=== PATIENT | male | born 1940 | race Caucasian/White ===

== ENCOUNTER → 2018-09-24 17:28 | Outpatient (CLI) | payer MEDICARE, OTHER, SELFPAY ==
[2018-09-24 17:42] LABS: Adenovirus F 40/41, stool Not Detected (NotDetected); Astrovirus Not Detected (NotDetected); Campylobacter Not Detected (NotDetected); Clostridium Difficile A/B, PCR Not Detected (NotDetected); Cryptosporidium Not Detected (NotDetected); Cyclospora Cayetanesis Not Detected (NotDetected); Entamoeba histolytica Not Detected (NotDetected); Enteroaggregative E coli Not Detected (NotDetected); Enteropathogenic E coli Not Detected (NotDetected); Enterotoxigenic E coli Not Detected (NotDetected); Giardia lamblia Not Detected (NotDetected); Norovirus Not Detected (NotDetected); Plesimonas Shigalloides, PCR Not Detected (NotDetected); Rotavirus A Not Detected (NotDetected); Salmonella, PCR Not Detected (NotDetected); Sapovirus Not Detected (NotDetected); Shiga-like toxin E coli Not Detected (NotDetected); Shigella Enterovasive E coli Not Detected (NotDetected); Vibrio Cholerae Not Detected (NotDetected); Vibrio, PCR Not Detected (NotDetected); Yersinia Entercolitica, PCR Not Detected (NotDetected)
== END ==
PROVIDERS: PCP Physician Assistant; Visit Provider Physician Assistant
DX: R19.7 Diarrhea, unspecified (principal)
CPT/HCPCS: 87506

== ENCOUNTER 2018-09-27 12:56 | Inpatient (IN) ==
--- NOTE | 2018-09-27 14:54 | History & Physical Report ---
*Admission Date: 09/27/18 *Chief complaint: diarrhea, abdominal pain, dehydration *History of present illness: Mr Gann is a 78-year-old male with a history of prostate cancer, hypertension, stroke, left-sided paralysis, DVT in the left leg, and neuropathy who has had diarrhea off and on for the past few years. The patient's stated that they did see Dr. Garcia for this as medications given by various PCPs had not helped. She states he was started on FiberCon and levsin and this caused severe constipation to the point of impaction. She had to give him a few enemas and after this he began having extremely watery diarrhea which has not stopped. She does not want him to have anymore fibercon or levsin. She states he has had some nausea as well as some vomiting with diffuse abdominal pain. He presented to the office of [facility] on 09/22/2018 and a diarrhea panel and lab work was ordered. His diarrhea panel was negative, but his labs showed a creatinine of 4.9, a sodium of 129, a potassium of 3.6, and a GFR of 12. His white blood cell count was elevated at 15.8 in the office. Test results were discussed with the patient's and it was felt that he would need direct admission for IV fluids, antiemetics, and a trial of Xifaxan for his diarrhea. [facility] History I have reviewed the patient's past medical history: Yes Medical History: Reports:: Cancer (prostate), Cerebrovascular Accident, Deep Vein Thrombosis, Hyperlipidemia, Hypertension *Have you ever received a pneumonia vaccine?: Yes *Have you received a flu vaccine this season?: Yes Other Medical History: Reports: Other (allergic rhinitis, neuropathy) Other Surgeries: Yes: Hernia Repair, Other (Prostate removed, back sx) - *Social History Smoking Status: Never smoker Alcohol Intake: never *Occupational Status:: disabled *Travel in the last 8 weeks: None Family Hx:: Coronary Artery Disease, Stroke Review of Systems - Constitutional Reports fatigue, Reports weakness, Reports weight loss, Denies fever(s) - Eyes Denies blurry vision, Denies double vision - ENT Reports nasal congestion, Denies sore throat - *Cardiovascular Denies chest pain, Denies shortness of breath, Denies generalized swelling - *Respiratory Denies cough, Denies shortness of breath - *Gastrointestinal Reports abdominal pain (diffuse), Reports loose stools, Reports nausea, Reports vomiting - *Genitourinary Denies difficulty urinating, Denies painful urination - *Musculoskeletal Denies joint pain, Denies muscle cramps - *Neurologic Reports weakness, Denies headache(s), Denies dizziness Meds Home Medications Medication Instructions Recorded Confirmed Type Acetaminophen 650 mg PO Q4HP PRN 09/27/18 09/27/18 History Aspirin [Aspir 81] 81 mg PO DAILY 09/27/18 09/27/18 History Atorvastatin Calcium [Atorvastatin 20 mg PO HS 09/27/18 09/27/18 History 20mg Tab] Azelastine/Fluticasone [Dymista 1 spray NS BID 09/27/18 09/27/18 History Nasal [place]] Baclofen [Lioresal 10mg tablet] 20 mg PO BID 09/27/18 09/27/18 History Bifidobacterium Infantis [Align] 4 mg PO DAILY 09/27/18 09/27/18 History Dantrolene Sodium [Dantrium] 100 mg PO BID 09/27/18 09/27/18 History Dextran 70/Hypromellose 1 each OP HS 09/27/18 09/27/18 History [Artificial Tears] Diclofenac Sodium [Voltaren 100gm 1 applicatio TP DIRECTED PRN 09/27/18 09/27/18 History Topical Gel] Ergocalciferol (Vitamin D2) 50,000 unit PO WEEKLY 09/27/18 09/27/18 History [Vitamin D2] Gabapentin 600 mg PO HS 09/27/18 09/27/18 History Gabapentin [Gabapentin 400mg Cap] 400 mg PO 0900,1200 09/27/18 09/27/18 History Glycopyrrolate 1 mg PO TID 09/27/18 09/27/18 History Metoprolol Succinate [Toprol XL 100 mg PO DAILY 09/27/18 09/27/18 History 100mg tablet] Mirtazapine [Remeron 15mg tablet] 15 mg PO HS 09/27/18 09/27/18 History Omeprazole [Omeprazole 20mg 20 mg PO DAILY 09/27/18 09/27/18 History Capsule] Oxazepam 10 mg PO TIDP PRN 09/27/18 09/27/18 History Potassium Chloride [K-Tab ER 10 10 meq PO DAILY 09/27/18 09/27/18 History mEq] Rivaroxaban [Xarelto 20mg Tablet] 20 mg PO DAILY 09/27/18 09/27/18 History Vitamin B Complex 1 each PO DAILY 09/27/18 09/27/18 History Allergies Allergy/AdvReac Type Severity Reaction Status Date / Time prochlorperazine Allergy Mild DISORIENTED Unverified 02/22/17 14:39 [From COMPAZINE] promethazine [From PHENERGAN] Allergy Mild DISORIENTED Unverified 02/22/17 14:39 Exam - Constitutional no acute distress - *Routine HEENT Exam Head: Present: normocephalic Eye: Present: EOMI, PERRL ENT: Present: mucous membranes dry - *Routine Neck Exam Present: supple. Absent: lymphadenopathy - *Routine Respiratory Exam Present: CTA bilaterally - *Routine Cardiovascular Exam Present: RRR, tachycardia - *Routine Abdominal Exam Present: soft, normoactive bowel sounds, tenderness (diffuse) - *Routine Extremities Exam Absent: cyanosis, clubbing, edema - *Routine Skin Exam Present: dry, warm. Absent: rash - *Routine Neurological Exam Present: alert, oriented X3 Assessment and Plan (1) Diarrhea Current visit: Yes Status: Acute Category: Medical Code(s): R19.7 - Diarrhea, unspecified (2) Dehydration Current visit: Yes Status: Acute Category: Medical Code(s): E86.0 - Dehydration (3) Renal failure Current visit: Yes Status: Acute Category: Medical Code(s): N19 - Unspecified kidney failure (4) Hyponatremia Current visit: Yes Status: Acute Category: Medical Code(s): E87.1 - Hypo- osmolality and hyponatremia (5) Hypokalemia Current visit: Yes Status: Acute Category: Medical Code(s): E87.6 - Hypokalemia (6) Leukocytosis Current visit: Yes Status: Acute Category: Medical Code(s): D72.829 - Elevated white blood cell count, unspecified (7) Hypertension Current visit: Yes Status: Chronic Category: Medical Code(s): I10 - Essential (primary) hypertension (8) Hyperlipidemia Current visit: Yes Status: Chronic Category: Medical Code(s): E78.5 - Hyperlipidemia, unspecified (9) History of CVA with residual deficit Current visit: Yes Status: Chronic Category: Medical Code(s): I69.30 - Unspecified sequelae of cerebral infarction (10) History of prostate cancer Current visit: Yes Status: Chronic Category: Medical Code(s): Z85.46 - Personal history of malignant neoplasm of prostate (11) Neuropathy Current visit: Yes Status: Chronic Category: Medical Code(s): G62.9 - Polyneuropathy, unspecified - Assessment and plan all Dx Assessment and Plan for all problems:: Will get repeat labs today along with a U/A and blood cultures. Will start on IVF's for dehydration and renal failure, antiemetics, and xifaxan for his diarrhea. Will repeat labs tomorrow.
--- NOTE | 2018-09-27 15:17 | Pharmacy Consult Notes ---
[facility] Pharmacy VTE Monitoring - Patient Demographics Admission date: 09/27/18 Report Date: 09/27/18 Time: 15:17 Allergies/Adverse Reactions: Patient Allergies prochlorperazine [From COMPAZINE] Allergy (Mild, Unverified 02/22/17 14:39) DISORIENTED promethazine [From PHENERGAN] Allergy (Mild, Unverified 02/22/17 14:39) DISORIENTED Height: 1.85 m Weight: 80.513 kg Patient Problems: Current Active Problems (Updated 09/27/18 @ 15:00 by DALE Bond) Diarrhea (Acute) Dehydration (Acute) Renal failure (Acute) Hyponatremia (Acute) Hypokalemia (Acute) Leukocytosis (Acute) Hypertension (Chronic) Hyperlipidemia (Chronic) History of CVA with residual deficit (Chronic) History of prostate cancer (Chronic) Neuropathy (Chronic) - Prophylaxis VTE Prophylaxis Ordered?: Yes Types of VTE Prophylaxis: TEDS Knee High Location of Applied Device: Bilateral Lower Extremeties - VTE Diagnosis Confirmed Treatment or plan recommended: Continue Current Treatment
[2018-09-27 15:31] LABS: Basophils # 0.1 K/mm3 (0-0.2); Basophils % 0.4 % (0.1-2.0); Eosinophils # 0.1 K/mm3 (0.0-0.4); Hematocrit 41.2 % (42.0-52.0); Hemoglobin 13.6 g/dL (14.1-18.0); Lymphocytes # 1.7 K/mm3 (0.7-4.5); Lymphocytes % 12.7 % (10-50); Mean Corpuscular HGB Conc 33.1 g/dL (31.8-35.4); Mean Corpuscular Volume 93.3 fl (80-94); Monocytes # 0.6 K/mm3 (0.1-1.0); Monocytes % 4.5 % (1.7-9.3); Neutrophils # 10.8 K/mm3 (1.8-7.8); Neutrophils % 81.4 % (37.0-80.0); Platelet Count 366 K/mm3 (142-424); Red Blood Count 4.41 M/mm3 (4.60-6.20); Red Cell Distribution Width 14.8 % (11.5-17.5); White Blood Count 13.2 K/mm3 (4.8-10.8)
[2018-09-27 15:40] LABS: Albumin Level 2.2 gm/dL (3.4-5.0); Albumin/Globulin Ratio 0.6 (1.1-1.8); Bilirubin,Total 0.7 mg/dL (0.2-1.0); Calcium 8.4 mg/dL (8.5-10.1); Globulin 3.6 gm/dl (1.3-3.2); Total Protein,Serum 5.8 gm/dL (6.4-8.2)
[2018-09-28 04:57] LABS: Microscopic, Urine URINE MICROSCOPIC (MICROSCOPIC)
[2018-09-28 05:13] LABS: Appearance,Urine CLEAR (Clear); Bilirubin,Urine Negative (Negative); Blood, Urine Negative (Negative); Color,Urine YELLOW (Yellow); Glucose,Urine (UA) Negative (Negative); Ketones,Urine Negative (Negative); Leukocyte Esterase,Urine Negative (Negative); Protein,Urine Negative (Negative); Urobilinogen,Urine 0.2 EU/dl (0.2)
[2018-09-28 05:43] LABS: Bacteria,Urine 1+ /lpf
[2018-09-28 06:44] LABS: Albumin Level 2.1 gm/dL (3.4-5.0); Albumin/Globulin Ratio 0.6 (1.1-1.8); Anion Gap 10.4 mEq/L (5-15); Bilirubin,Total 0.8 mg/dL (0.2-1.0); Globulin 3.4 gm/dl (1.3-3.2); Total Protein,Serum 5.5 gm/dL (6.4-8.2)
--- NOTE | 2018-09-28 08:37 | Progress Note ---
Internal Medicine - PN: Subj *Date: 09/28/18 *Time: 08:33 Interval history: Patient states he has not had a good night. Apparently he took a pill crushed in applesauce last night and feels as if it got stuck in his esophagus. He has had some pain there ever since and has been vomiting bile. He refuses to take any other pills by mouth or to eat at this point. He has had watery diarrhea all night as well. He states his stomach pain continues. Exam Vital signs and Labs for Last 24 Hours: Temp Pulse Resp BP Pulse Ox 97.7 F 121 H 18 148/88 H 94 L 09/28/18 07:57 09/28/18 07:57 09/28/18 07:57 09/28/18 07:57 09/28/18 08:00 Laboratory Results - last 24 hr 09/27/18 15:10: WBC 13.2 H, RBC 4.41 L, Hgb 13.6 L, Hct 41.2 L, MCV 93.3, MCH 30.9, MCHC 33.1, RDW 14.8, Plt Count 366, MPV 7.0 L, Neut % (Auto) 81.4 H, Lymph % (Auto) 12.7, [place] % (Auto) 4.5, Eos % (Auto) 1.0, Baso % (Auto) 0.4, Neut # (Auto) 10.8 H, Lymph # (Auto) 1.7, [place] # (Auto) 0.6, Eos # (Auto) 0.1, Baso # (Auto) 0.1 09/27/18 15:10: Sodium 136, Potassium 3.0 L, Chloride 100, Carbon Dioxide 28, Anion Gap 11.0, BUN 6 L, Creatinine 0.65 L, Estimated Creat Clear 68, Estimated GFR 119, Est GFR ( Amer) 143, Glucose 114 H, Calcium 8.4 L, Total Bilirubin 0.7, AST 21, ALT 18, Alkaline Phosphatase 113, Total Protein 5.8 L, Albumin 2.2 L, Globulin 3.6 H, Albumin/Globulin Ratio 0.6 L 09/28/18 03:40: Urine Color Yellow, Urine Appearance Clear, Urine pH 7.0, Ur Specific [place] 1.010, Urine Protein Negative, Urine Glucose (UA) Negative, Urine Ketones Negative, Urine Blood Negative, Urine Nitrate Negative, Urine Bilirubin Negative, Urine Urobilinogen 0.2, Ur Leukocyte Esterase Negative, Urine WBC 3-5, Ur Squamous Epith Cells 3-5, Urine Bacteria 1+ 09/28/18 06:04: Sodium 138, Potassium 3.4 L, Chloride 105, Carbon Dioxide 26, Anion Gap 10.4, BUN 4 L D, Creatinine 0.61 L, Estimated Creat Clear 67, Estimated GFR 128, Est GFR ( Amer) 154, Glucose 97, Calcium 8.0 L, Total Bilirubin 0.8, AST 19, ALT 17, Alkaline Phosphatase 109, Total Protein 5.5 L, Albumin 2.1 L, Globulin 3.4 H, Albumin/Globulin Ratio 0.6 L I & O for Last 24 hours: Intake & Output 09/25/18 09/26/18 09/27/18 09/28/18 11:59 11:59 11:59 11:59 Intake Total 2690 / 2690 Output Total 200 / 200 Balance 2490 / 2490 Weight 175 lb 2 oz - Constitutional no acute distress - *Routine Respiratory Exam Present: CTA bilaterally - *Routine Cardiovascular Exam Present: RRR, tachycardia - *Routine Abdominal Exam Present: soft, normoactive bowel sounds, tenderness (diffuse) - *Routine Extremities Exam Absent: cyanosis, clubbing, edema - *Routine Skin Exam Present: warm. Absent: rash - *Routine Neurological Exam Present: alert, oriented X3 Assessment and Plan (1) Diarrhea Current visit: Yes Status: Acute Category: Medical Code(s): R19.7 - Diarrhea, unspecified (2) Dehydration Current visit: Yes Status: Acute Category: Medical Code(s): E86.0 - Dehydration (3) Renal failure Current visit: Yes Status: Acute Category: Medical Code(s): N19 - Unspecified kidney failure (4) Hyponatremia Current visit: Yes Status: Acute Category: Medical Code(s): E87.1 - Hypo- osmolality and hyponatremia (5) Hypokalemia Current visit: Yes Status: Acute Category: Medical Code(s): E87.6 - Hypokalemia (6) Leukocytosis Current visit: Yes Status: Acute Category: Medical Code(s): D72.829 - Elevated white blood cell count, unspecified (7) Hypertension Current visit: Yes Status: Chronic Category: Medical Code(s): I10 - Essential (primary) hypertension (8) Hyperlipidemia Current visit: Yes Status: Chronic Category: Medical Code(s): E78.5 - Hyperlipidemia, unspecified (9) History of CVA with residual deficit Current visit: Yes Status: Chronic Category: Medical Code(s): I69.30 - Unspecified sequelae of cerebral infarction (10) History of prostate cancer Current visit: Yes Status: Chronic Category: Medical Code(s): Z85.46 - Personal history of malignant neoplasm of prostate (11) Neuropathy Current visit: Yes Status: Chronic Category: Medical Code(s): G62.9 - Polyneuropathy, unspecified (12) Fecal impaction in rectum Current visit: Yes Status: Acute Category: Medical Code(s): K56.41 - Fecal impaction - Assessment and plan all Dx Assessment and Plan for all problems:: Will consult surgery d/t the patient's esophageal pain and will give a one time dose of 5mg of reglan this am. A clear liquid diet has been ordered.
--- NOTE | 2018-09-28 14:01 | Consult Report ---
*Admission Date: 09/27/18 *Reason for consult:: Dysphagia *History of present illness: This is a 78-year-old gentleman seen in consultation from the service of Dr. Monroe for evaluation regarding dysphagia. On morning rounds the patient had some complaints of "difficulty swallowing". He also noticed some bilious emesis and concerns regarding possible esophageal obstruction were discussed. The patient is a poor historian but seemingly quite concerned about possible obstruction. The patient underwent a modified barium swallow earlier today with recommendations for mechanical soft with thin liquids. No obvious obstruction noted on modified barium swallow; however, the mid and distal esophagus were not evaluated. Per discussion with the patient's he has an extremely long history of difficulty swallowing and "this is nothing new". The patient's has requested further evaluation such as "regular" barium swallow or esophagogastroduodenoscopy be avoided secondary to his multiple comorbid medical conditions. She states that he would "just worry about it" and that he "really could not handle any kind of big procedure anyway". Review of Systems - Constitutional Denies chills - Eyes Denies change in vision - *Cardiovascular Denies chest pain - *Gastrointestinal Reports difficulty swallowing, Reports vomiting - *Neurologic Reports weakness, Denies headache(s), Denies dizziness [facility] History Medical History: Reports:: Cancer (prostate), Cerebrovascular Accident, Deep Vein Thrombosis, Hyperlipidemia, Hypertension Denies:: Diabetes Mellitus Type 1, Diabetes Mellitus Type 2 *Have you ever received a pneumonia vaccine?: Yes *Have you received a flu vaccine this season?: Yes Other Medical History: Reports: Other (allergic rhinitis, neuropathy) Other Surgeries: Yes: Hernia Repair, Skin Cancer Excision, Other (Prostate removed, back sx) - *Social History Smoking Status: Never smoker Alcohol Intake: never *Occupational Status:: disabled Household Members: spouse *Travel in the last 8 weeks: None Family Hx:: Coronary Artery Disease, Stroke Meds Home Medications Medication Instructions Recorded Confirmed Type Acetaminophen 650 mg PO Q4HP PRN 09/27/18 09/27/18 History Aspirin [Aspir 81] 81 mg PO DAILY 09/27/18 09/27/18 History Atorvastatin Calcium [Atorvastatin 20 mg PO HS 09/27/18 09/27/18 History 20mg Tab] Bifidobacterium Infantis [Align] 4 mg PO DAILY 09/27/18 09/27/18 History Dantrolene Sodium [Dantrium] 100 mg PO BID 09/27/18 09/27/18 History Dextran 70/Hypromellose 1 each OP HS 09/27/18 09/27/18 History [Artificial Tears] Diclofenac Sodium [Voltaren 100gm 1 applicatio TP DIRECTED PRN 09/27/18 09/27/18 History Topical Gel] Ergocalciferol (Vitamin D2) 50,000 unit PO WEEKLY 09/27/18 09/27/18 History [Vitamin D2] Gabapentin 600 mg PO HS 09/27/18 09/27/18 History Gabapentin [Gabapentin 400mg Cap] 400 mg PO DAILY 09/27/18 09/27/18 History Glycopyrrolate 1 mg PO TID 09/27/18 09/27/18 History Metoprolol Succinate [Toprol XL 100 mg PO DAILY 09/27/18 09/27/18 History 100mg tablet] Mirtazapine [Remeron 15mg tablet] 15 mg PO HS 09/27/18 09/27/18 History Omeprazole [Omeprazole 20mg 20 mg PO DAILY 09/27/18 09/27/18 History Capsule] Oxazepam 10 mg PO TIDP PRN 09/27/18 09/27/18 History Rivaroxaban [Xarelto 20mg Tablet] 20 mg PO DAILY 09/27/18 09/27/18 History Vitamin B Complex 1 each PO DAILY 09/27/18 09/27/18 History Allergies Allergy/AdvReac Type Severity Reaction Status Date / Time prochlorperazine Allergy Mild DISORIENTED Verified 09/27/18 16:45 [From COMPAZINE] promethazine [From PHENERGAN] Allergy Mild DISORIENTED Verified 09/27/18 16:45 Exam Vital signs and Labs for Last 24 Hours: Temp Pulse Resp BP Pulse Ox 97.7 F 121 H 18 148/88 H 94 L 09/28/18 07:57 09/28/18 07:57 09/28/18 07:57 09/28/18 07:57 09/28/18 08:00 Laboratory Results - last 24 hr 09/27/18 15:10: WBC 13.2 H, RBC 4.41 L, Hgb 13.6 L, Hct 41.2 L, MCV 93.3, MCH 30.9, MCHC 33.1, RDW 14.8, Plt Count 366, MPV 7.0 L, Neut % (Auto) 81.4 H, Lymph % (Auto) 12.7, [place] % (Auto) 4.5, Eos % (Auto) 1.0, Baso % (Auto) 0.4, Neut # (Auto) 10.8 H, Lymph # (Auto) 1.7, [place] # (Auto) 0.6, Eos # (Auto) 0.1, Baso # (Auto) 0.1 09/27/18 15:10: Sodium 136, Potassium 3.0 L, Chloride 100, Carbon Dioxide 28, Anion Gap 11.0, BUN 6 L, Creatinine 0.65 L, Estimated Creat Clear 68, Estimated GFR 119, Est GFR ( Amer) 143, Glucose 114 H, Calcium 8.4 L, Total Bilirubin 0.7, AST 21, ALT 18, Alkaline Phosphatase 113, Total Protein 5.8 L, Albumin 2.2 L, Globulin 3.6 H, Albumin/Globulin Ratio 0.6 L 09/28/18 03:40: Urine Color Yellow, Urine Appearance Clear, Urine pH 7.0, Ur Specific [place] 1.010, Urine Protein Negative, Urine Glucose (UA) Negative, Urine Ketones Negative, Urine Blood Negative, Urine Nitrate Negative, Urine Bilirubin Negative, Urine Urobilinogen 0.2, Ur Leukocyte Esterase Negative, Urine WBC 3-5, Ur Squamous Epith Cells 3-5, Urine Bacteria 1+ 09/28/18 06:04: Sodium 138, Potassium 3.4 L, Chloride 105, Carbon Dioxide 26, Anion Gap 10.4, BUN 4 L D, Creatinine 0.61 L, Estimated Creat Clear 67, Estimated GFR 128, Est GFR ( Amer) 154, Glucose 97, Calcium 8.0 L, Total Bilirubin 0.8, AST 19, ALT 17, Alkaline Phosphatase 109, Total Protein 5.5 L, Albumin 2.1 L, Globulin 3.4 H, Albumin/Globulin Ratio 0.6 L I & O for Last 24 hours: Intake & Output 09/26/18 09/27/18 09/28/18 09/29/18 11:59 11:59 11:59 11:59 Intake Total 2690 / 2690 0 / 0 Output Total 200 / 200 Balance 2490 / 2490 0 / 0 Weight 175 lb 2 oz - Constitutional no acute distress - *Routine Respiratory Exam Absent: respiratory distress - *Routine Cardiovascular Exam Present: tachycardia Results - Labs 09/27/18 15:10 09/28/18 06:04 Laboratory Results - last 24 hr 09/27/18 15:10: WBC 13.2 H, RBC 4.41 L, Hgb 13.6 L, Hct 41.2 L, MCV 93.3, MCH 30.9, MCHC 33.1, RDW 14.8, Plt Count 366, MPV 7.0 L, Neut % (Auto) 81.4 H, Lymph % (Auto) 12.7, [place] % (Auto) 4.5, Eos % (Auto) 1.0, Baso % (Auto) 0.4, Neut # (Auto) 10.8 H, Lymph # (Auto) 1.7, [place] # (Auto) 0.6, Eos # (Auto) 0.1, Baso # (Auto) 0.1 09/27/18 15:10: Sodium 136, Potassium 3.0 L, Chloride 100, Carbon Dioxide 28, Anion Gap 11.0, BUN 6 L, Creatinine 0.65 L, Estimated Creat Clear 68, Estimated GFR 119, Est GFR ( Amer) 143, Glucose 114 H, Calcium 8.4 L, Total Bilirubin 0.7, AST 21, ALT 18, Alkaline Phosphatase 113, Total Protein 5.8 L, Albumin 2.2 L, Globulin 3.6 H, Albumin/Globulin Ratio 0.6 L 09/28/18 03:40: Urine Color Yellow, Urine Appearance Clear, Urine pH 7.0, Ur Specific [place] 1.010, Urine Protein Negative, Urine Glucose (UA) Negative, Urine Ketones Negative, Urine Blood Negative, Urine Nitrate Negative, Urine Bilirubin Negative, Urine Urobilinogen 0.2, Ur Leukocyte Esterase Negative, Urine WBC 3-5, Ur Squamous Epith Cells 3-5, Urine Bacteria 1+ 09/28/18 06:04: Sodium 138, Potassium 3.4 L, Chloride 105, Carbon Dioxide 26, Anion Gap 10.4, BUN 4 L D, Creatinine 0.61 L, Estimated Creat Clear 67, Estimated GFR 128, Est GFR ( Amer) 154, Glucose 97, Calcium 8.0 L, Total Bilirubin 0.8, AST 19, ALT 17, Alkaline Phosphatase 109, Total Protein 5.5 L, Albumin 2.1 L, Globulin 3.4 H, Albumin/Globulin Ratio 0.6 L Assessment and Plan (1) Diarrhea Current visit: Yes Status: Acute Category: Medical Code(s): R19.7 - Diarrhea, unspecified (2) Dehydration Current visit: Yes Status: Acute Category: Medical Code(s): E86.0 - Dehydration (3) Renal failure Current visit: Yes Status: Acute Category: Medical Code(s): N19 - Unspecified kidney failure (4) Hyponatremia Current visit: Yes Status: Acute Category: Medical Code(s): E87.1 - Hypo-osmolality and hyponatremia (5) Hypokalemia Current visit: Yes Status: Acute Category: Medical Code(s): E87.6 - Hypokalemia (6) Leukocytosis Current visit: Yes Status: Acute Category: Medical Code(s): D72.829 - Elevated white blood cell count, unspecified (7) Hypertension Current visit: Yes Status: Chronic Category: Medical Code(s): I10 - Essential (primary) hypertension (8) Hyperlipidemia Current visit: Yes Status: Chronic Category: Medical Code(s): E78.5 - Hyperlipidemia, unspecified (9) History of CVA with residual deficit Current visit: Yes Status: Chronic Category: Medical Code(s): I69.30 - Unspecified sequelae of cerebral infarction (10) History of prostate cancer Current visit: Yes Status: Chronic Category: Medical Code(s): Z85.46 - Personal history of malignant neoplasm of prostate (11) Neuropathy Current visit: Yes Status: Chronic Category: Medical Code(s): G62.9 - Polyneuropathy, unspecified (12) Fecal impaction in rectum Current visit: Yes Status: Acute Category: Medical Code(s): K56.41 - Fecal impaction (13) Dysphagia Current visit: Yes Status: Acute Category: Medical Code(s): R13.10 - Dysphagia, unspecified Mechanical soft diet with thin liquids as per dysphasia consultation/modified barium swallow results. Would not pursue further evaluation such as standard barium swallow or esophagogastroduodenoscopy unless deemed necessary to his overall care as directed by his primary service. The patient's has requested no further evaluation. The benefits of these studies are seemingly less than any risks.
[2018-09-29 06:57] LABS: Basophils % 0.3 % (0.1-2.0); Eosinophils # 0.4 K/mm3 (0.0-0.4); Eosinophils % 2.8 % (0.1-12.0); Hematocrit 34.3 % (42.0-52.0); Hemoglobin 11.3 g/dL (14.1-18.0); Lymphocytes # 2.4 K/mm3 (0.7-4.5); Lymphocytes % 19.3 % (10-50); Mean Corpuscular HGB Conc 32.8 g/dL (31.8-35.4); Mean Corpuscular Volume 94.6 fl (80-94); Mean Platelet Volume 8.6 fl (7.4-10.4); Monocytes # 0.9 K/mm3 (0.1-1.0); Monocytes % 6.9 % (1.7-9.3); Neutrophils # 8.9 K/mm3 (1.8-7.8); Neutrophils % 70.6 % (37.0-80.0); Platelet Count 252 K/mm3 (142-424); Red Blood Count 3.63 M/mm3 (4.60-6.20); Red Cell Distribution Width 15.3 % (11.5-17.5); White Blood Count 12.6 K/mm3 (4.8-10.8)
[2018-09-29 07:19] LABS: Albumin Level 1.7 gm/dL (3.4-5.0); Albumin/Globulin Ratio 0.6 (1.1-1.8); Anion Gap 8.1 mEq/L (5-15); Bilirubin,Total 0.6 mg/dL (0.2-1.0); Calcium 7.7 mg/dL (8.5-10.1); Globulin 2.9 gm/dl (1.3-3.2); Total Protein,Serum 4.6 gm/dL (6.4-8.2)
--- NOTE | 2018-09-29 08:17 | Progress Note ---
Internal Medicine - PN: Subj *Date: 09/29/18 *Time: 08:14 Interval history: Patient states he is still not feeling well today, however he is sitting up in a chair and he is eating breakfast without difficulty. He has only had 2 diarrheal stools throughout the night and the nurse states they are more formed. His abdominal pain has improved but he states he still feels like something is stuck in his esophagus. His daughter has left a note for Dr. Monroe explaining that the patient has required a higher level of care recently and she feels that the family is going to need some help caring for him upon discharge. Exam Vital signs and Labs for Last 24 Hours: Temp Pulse Resp BP Pulse Ox 99.1 F 82 21 118/69 98 09/29/18 04:00 09/29/18 04:00 09/29/18 04:00 09/29/18 04:00 09/29/18 04:00 Laboratory Results - last 24 hr 09/29/18 05:40: WBC 12.6 H, RBC 3.63 L, Hgb 11.3 L, Hct 34.3 L, MCV 94.6 H, MCH 31.1, MCHC 32.8, RDW 15.3, Plt Count 252 D, MPV 8.6, Neut % (Auto) 70.6, Lymph % (Auto) 19.3, [place] % (Auto) 6.9, Eos % (Auto) 2.8, Baso % (Auto) 0.3, Neut # ( Auto) 8.9 H, Lymph # (Auto) 2.4, [place] # (Auto) 0.9, Eos # (Auto) 0.4, Baso # (Auto) 0.0 09/29/18 05:40: Sodium 135 L, Potassium 4.1 D, Chloride 106, Carbon Dioxide 25, Anion Gap 8.1, BUN 4 L, Creatinine 0.50 L, Estimated Creat Clear 67, Estimated GFR 160, Est GFR ( Amer) 194 D, Glucose 83, Calcium 7.7 L, Total Bilirubin 0.6, AST 14 L D, ALT 14, Alkaline Phosphatase 87, Total Protein 4.6 L, Albumin 1.7 L D, Globulin 2.9, Albumin/Globulin Ratio 0.6 L I & O for Last 24 hours: Intake & Output 09/26/18 09/27/18 09/28/1809/29/19 11:59 11:59 11:59 11:59 Intake Total 2690 / 2690 2448 / 2448 Output Total 200 / 200 Balance 2490 / 2490 2448 / 2448 Weight 175 lb 2 oz 173 lb 9 oz - Constitutional no acute distress - *Routine Respiratory Exam Present: CTA bilaterally - *Routine Cardiovascular Exam Present: RRR - *Routine Abdominal Exam Present: soft, normoactive bowel sounds. Absent: tenderness - *Routine Extremities Exam Absent: cyanosis, clubbing, edema - *Routine Skin Exam Present: warm. Absent: rash - *Routine Neurological Exam Present: alert, oriented X3 Assessment and Plan (1) Diarrhea Current visit: Yes Status: Acute Category: Medical Code(s): R19.7 - Diarrhea, unspecified (2) Dehydration Current visit: Yes Status: Acute Category: Medical Code(s): E86.0 - Dehydration (3) Renal failure Current visit: Yes Status: Acute Category: Medical Code(s): N19 - Unspecified kidney failure (4) Hyponatremia Current visit: Yes Status: Acute Category: Medical Code(s): E87.1 - Hypo- osmolality and hyponatremia (5) Hypokalemia Current visit: Yes Status: Acute Category: Medical Code(s): E87.6 - Hypokalemia (6) Leukocytosis Current visit: Yes Status: Acute Category: Medical Code(s): D72.829 - Elevated white blood cell count, unspecified (7) Hypertension Current visit: Yes Status: Chronic Category: Medical Code(s): I10 - Essential (primary) hypertension (8) Hyperlipidemia Current visit: Yes Status: Chronic Category: Medical Code(s): E78.5 - Hyperlipidemia, unspecified (9) History of CVA with residual deficit Current visit: Yes Status: Chronic Category: Medical Code(s): I69.30 - Unspecified sequelae of cerebral infarction (10) History of prostate cancer Current visit: Yes Status: Chronic Category: Medical Code(s): Z85.46 - Personal history of malignant neoplasm of prostate (11) Neuropathy Current visit: Yes Status: Chronic Category: Medical Code(s): G62.9 - Polyneuropathy, unspecified (12) Fecal impaction in rectum Current visit: Yes Status: Acute Category: Medical Code(s): K56.41 - Fecal impaction (13) Dysphagia Current visit: Yes Status: Acute Category: Medical Code(s): R13.10 - Dysphagia, unspecified - Assessment and plan all Dx Assessment and Plan for all problems:: Swallowing evaluation has been reviewed and a new diet has been ordered. Patient is tolerating this well. He continues with diarrhea. His white blood cell count has improved but is still elevated. Awaiting blood cultures and will also get a urine culture. Will restart Xifaxan as he has had diarrhea for years with no improvement with other medications. As his renal function has now improved, we will also get a CT of the abdomen and pelvis with contrast.
--- NOTE | 2018-09-30 14:19 | Progress Note ---
Internal Medicine - PN: Subj *Date: 09/30/18 *Time: 09:00 Interval history: Has been stable. Rested some overnight. Still c/o some midchest burning/irritation, as if esophageal irritation. Disposition is a problem due to our desire to treat with 2 weeks of Xifaxan, which is expensive. [facility] does not want him if he is on this medication. CT showed bolus of stool remaining as impaction. Only 2 stools through the night. Exam Vital signs and Labs for Last 24 Hours: Temp Pulse Resp BP Pulse Ox 97.9 F 87 18 129/76 98 09/30/18 08:00 09/30/18 08:00 09/30/18 08:00 09/30/18 08:00 09/30/18 08:00 I & O for Last 24 hours: Intake & Output 09/28/18 09/29/18 09/30/18 10/01/18 11:59 11:59 11:59 11:59 Intake Total 2690 / 2690 3048 / 3048 600 / 600 240 / 240 Output Total 200 / 200 400 / 400 Balance 2490 / 2490 2648 / 2648 600 / 600 240 / 240 Weight 175 lb 2 oz 173 lb 9 oz 173 lb 12.893 oz Microbiology Reports for the Last 24 Hours: Microbiology 09/28/18 03:40 Urine,Clean Catch Urine Culture - Preliminary 09/27/18 15:10 Blood Blood Culture - Preliminary NO GROWTH AFTER 48 HOURS 09/27/18 15:10 Blood Blood Culture - Preliminary NO GROWTH AFTER 48 HOURS - Constitutional no acute distress - Routine Chest/Breast/Axilla Exam Chest wall: Absent: tenderness - *Routine Respiratory Exam Present: CTA bilaterally - *Routine Cardiovascular Exam Present: RRR - *Routine Abdominal Exam Present: soft. Absent: tenderness - *Routine Extremities Exam Present: edema (2+) Assessment and Plan (1) Diarrhea Current visit: Yes Status: Acute Category: Medical Code(s): R19.7 - Diarrhea, unspecified (2) Dehydration Current visit: Yes Status: Acute Category: Medical Code(s): E86.0 - Dehydration (3) Renal failure Current visit: Yes Status: Acute Category: Medical Code(s): N19 - Unspecified kidney failure (4) Hyponatremia Current visit: Yes Status: Acute Category: Medical Code(s): E87.1 - Hypo- osmolality and hyponatremia (5) Hypokalemia Current visit: Yes Status: Acute Category: Medical Code(s): E87.6 - Hypokalemia (6) Fecal impaction in rectum Current visit: Yes Status: Acute Category: Medical Code(s): K56.41 - Fecal impaction (7) Leukocytosis Current visit: Yes Status: Acute Category: Medical Code(s): D72.829 - Elevated white blood cell count, unspecified (8) Hypertension Current visit: Yes Status: Chronic Category: Medical Code(s): I10 - Essential (primary) hypertension (9) Hyperlipidemia Current visit: Yes Status: Chronic Category: Medical Code(s): E78.5 - Hyperlipidemia, unspecified (10) History of CVA with residual deficit Current visit: Yes Status: Chronic Category: Medical Code(s): I69.30 - Unspecified sequelae of cerebral infarction (11) History of prostate cancer Current visit: Yes Status: Chronic Category: Medical Code(s): Z85.46 - Personal history of malignant neoplasm of prostate (12) Neuropathy Current visit: Yes Status: Chronic Category: Medical Code(s): G62.9 - Polyneuropathy, unspecified (13) Dysphagia Current visit: Yes Status: Acute Category: Medical Code(s): R13.10 - Dysphagia, unspecified - Assessment and plan all Dx Assessment and Plan for all problems:: repeat enemas today. Continue Xifaxan.
[2018-10-01 06:25] LABS: Basophils # 0.1 K/mm3 (0-0.2); Basophils % 0.5 % (0.1-2.0); Eosinophils # 0.6 K/mm3 (0.0-0.4); Eosinophils % 5.7 % (0.1-12.0); Hematocrit 36.3 % (42.0-52.0); Hemoglobin 12.1 g/dL (14.1-18.0); Mean Corpuscular HGB Conc 33.3 g/dL (31.8-35.4); Mean Corpuscular Volume 94.9 fl (80-94); Mean Platelet Volume 7.6 fl (7.4-10.4); Monocytes # 0.7 K/mm3 (0.1-1.0); Monocytes % 6.8 % (1.7-9.3); Neutrophils # 6.7 K/mm3 (1.8-7.8); Platelet Count 261 K/mm3 (142-424); Red Blood Count 3.82 M/mm3 (4.60-6.20)
[2018-10-01 06:37] LABS: Anion Gap 10.3 mEq/L (5-15); Calcium 8.2 mg/dL (8.5-10.1)
--- NOTE | 2018-10-01 13:19 | Progress Note ---
Internal Medicine - PN: Subj *Date: 10/01/18 *Time: 13:16 Interval history: He had good results with the enemas yesterday. He has not had a bowel movement of significance today. Overall he is much improved and should be ready for discharge soon. Again the expense of the medication Xifaxin causes us difficulty in situating him at [facility]. We will evaluate this further tomorrow. Exam Vital signs and Labs for Last 24 Hours: Temp Pulse Resp BP Pulse Ox 97.7 F 97 H 18 124/77 93 L 10/01/18 07:33 10/01/18 07:33 10/01/18 07:33 10/01/18 07:33 10/01/18 08:40 Laboratory Results - last 24 hr 10/01/18 06:03: WBC 10.0, RBC 3.82 L, Hgb 12.1 L, Hct 36.3 L, MCV 94.9 H, MCH 31.6 H, MCHC 33.3, RDW 15.0, Plt Count 261, MPV 7.6, Neut % (Auto) 67.0, Lymph % (Auto) 20.0, [place] % (Auto) 6.8, Eos % (Auto) 5.7, Baso % (Auto) 0.5, Neut # (Auto) 6.7, Lymph # (Auto) 2.0, [place] # (Auto) 0.7, Eos # (Auto) 0.6 H, Baso # (Auto) 0.1 10/01/18 06:03: Sodium 136, Potassium 4.3, Chloride 103, Carbon Dioxide 27, Anion Gap 10.3, BUN 4 L, Creatinine 0.59 L, Estimated Creat Clear 67, Estimated GFR 133, Est GFR ( Amer) 160, Glucose 91, Calcium 8.2 L I & O for Last 24 hours: Intake & Output 09/29/18 09/30/18 10/01/18 10/02/18 11:59 11:59 11:59 11:59 Intake Total 3048 / 3048 600 / 600 3431 / 3431 240 / 240 Output Total 400 / 400 Balance 2648 / 2648 600 / 600 3431 / 3431 240 / 240 Weight 173 lb 9 oz 173 lb 12.893 oz 175 lb 7 oz Microbiology Reports for the Last 24 Hours: Microbiology 09/28/18 03:40 Urine,Clean Catch Urine Culture - Preliminary Gram Negative Rods Gram Negative Rods#2 - Constitutional no acute distress - *Routine Respiratory Exam Present: CTA bilaterally - *Routine Cardiovascular Exam Present: RRR - *Routine Abdominal Exam Present: soft. Absent: tenderness - *Routine Extremities Exam Comments: ANNIE stockings with evidence of minimal edema - *Routine Skin Exam Comments: There is reported perineal irritation. - *Routine Neurological Exam Unchanged. Assessment and Plan (1) Diarrhea Current visit: Yes Status: Acute Category: Medical Code(s): R19.7 - Diarrhea, unspecified (2) Dehydration Current visit: Yes Status: Acute Category: Medical Code(s): E86.0 - Dehydration (3) Renal failure Current visit: Yes Status: Acute Category: Medical Code(s): N19 - Unspecified kidney failure (4) Hyponatremia Current visit: Yes Status: Acute Category: Medical Code(s): E87.1 - Hypo- osmolality and hyponatremia (5) Hypokalemia Current visit: Yes Status: Acute Category: Medical Code(s): E87.6 - Hypokalemia (6) Fecal impaction in rectum Current visit: Yes Status: Acute Category: Medical Code(s): K56.41 - Fecal impaction (7) Leukocytosis Current visit: Yes Status: Acute Category: Medical Code(s): D72.829 - Elevated white blood cell count, unspecified (8) Hypertension Current visit: Yes Status: Chronic Category: Medical Code(s): I10 - Essential (primary) hypertension (9) Hyperlipidemia Current visit: Yes Status: Chronic Category: Medical Code(s): E78.5 - Hyperlipidemia, unspecified (10) History of CVA with residual deficit Current visit: Yes Status: Chronic Category: Medical Code(s): I69.30 - Unspecified sequelae of cerebral infarction (11) History of prostate cancer Current visit: Yes Status: Chronic Category: Medical Code(s): Z85.46 - Personal history of malignant neoplasm of prostate (12) Neuropathy Current visit: Yes Status: Chronic Category: Medical Code(s): G62.9 - Polyneuropathy, unspecified (13) Dysphagia Current visit: Yes Status: Acute Category: Medical Code(s): R13.10 - Dysphagia, unspecified - Assessment and plan all Dx Assessment and Plan for all problems:: Continue present treatment. We will evaluate for disposition tomorrow.
--- NOTE | 2018-10-02 08:24 | Progress Note ---
Internal Medicine - PN: Subj *Date: 10/02/18 *Time: 08:18 Interval history: States he is feeling better and slept well. He is sitting on the bedside and enjoying his oatmeal for breakfast. He states he had no bowel movements during the night. He is voiding without difficulty. He denies chest pain, shortness of breath, and abdominal pain. Exam Vital signs and Labs for Last 24 Hours: Temp Pulse Resp BP Pulse Ox 97.6 F 83 17 132/84 95 10/02/18 07:15 10/02/18 07:15 10/02/18 07:15 10/02/18 07:15 10/02/18 07:15 I & O for Last 24 hours: Intake & Output 09/29/18 09/30/18 10/01/18 10/02/18 11:59 11:59 11:59 11:59 Intake Total 3048 / 3048 600 / 600 3431 / 3431 1663 / 1663 Output Total 400 / 400 Balance 2648 / 2648 600 / 600 3431 / 3431 1663 / 1663 Weight 173 lb 9 oz 173 lb 12.893 oz 175 lb 7 oz 176 lb 2 oz Microbiology Reports for the Last 24 Hours: Microbiology 09/28/18 03:40 Urine,Clean Catch Urine Culture - Final Proteus mirabilis Escherichia coli - Constitutional no acute distress Comments: Sitting on the bedside eating his breakfast. Appears very comfortable. - *Routine Respiratory Exam Present: CTA bilaterally (Anteriorly and posteriorly) - *Routine Cardiovascular Exam Present: RRR - *Routine Abdominal Exam Present: soft, normoactive bowel sounds. Absent: tenderness - *Routine Extremities Exam Absent: edema, calf tenderness - *Routine Neurological Exam Present: alert, oriented X3 Assessment and Plan (1) Diarrhea Current visit: Yes Status: Acute Category: Medical Code(s): R19.7 - Diarrhea, unspecified (2) Dehydration Current visit: Yes Status: Acute Category: Medical Code(s): E86.0 - Dehydration (3) Renal failure Current visit: Yes Status: Acute Category: Medical Code(s): N19 - Unspecified kidney failure (4) Hyponatremia Current visit: Yes Status: Acute Category: Medical Code(s): E87.1 - Hypo- osmolality and hyponatremia (5) Hypokalemia Current visit: Yes Status: Acute Category: Medical Code(s): E87.6 - Hypokalemia (6) Fecal impaction in rectum Current visit: Yes Status: Acute Category: Medical Code(s): K56.41 - Fecal impaction (7) Leukocytosis Current visit: Yes Status: Acute Category: Medical Code(s): D72.829 - Elevated white blood cell count, unspecified (8) Hypertension Current visit: Yes Status: Chronic Category: Medical Code(s): I10 - Essential (primary) hypertension (9) Hyperlipidemia Current visit: Yes Status: Chronic Category: Medical Code(s): E78.5 - Hyperlipidemia, unspecified (10) History of CVA with residual deficit Current visit: Yes Status: Chronic Category: Medical Code(s): I69.30 - Unspecified sequelae of cerebral infarction (11) History of prostate cancer Current visit: Yes Status: Chronic Category: Medical Code(s): Z85.46 - Personal history of malignant neoplasm of prostate (12) Neuropathy Current visit: Yes Status: Chronic Category: Medical Code(s): G62.9 - Polyneuropathy, unspecified (13) Dysphagia Current visit: Yes Status: Acute Category: Medical Code(s): R13.10 - Dysphagia, unspecified (14) Urinary tract infection due to Proteus Current visit: Yes Status: Acute Category: Medical Code(s): N39.0 - Urinary tract infection, site not specified; B96.4 - Proteus (mirabilis) (morganii) as the cause of diseases classified elsewhere (15) E. coli UTI Current visit: Yes Status: Acute Category: Medical Code(s): N39.0 - Urinary tract infection, site not specified; B96.20 - Unspecified Escherichia coli [E. coli] as the cause of diseases classified elsewhere - Assessment and plan all Dx Assessment and Plan for all problems:: Discussed with pharmacist. Will start Levaquin. Disposition is still an issue.
--- NOTE | 2018-10-02 13:48 | Discharge Summary ---
General - General Admission date:: 09/27/18 Discharge date: 10/02/18 HPI HPI: Mr Gann is a 78-year-old male with a history of prostate cancer, hypertension, stroke, left-sided paralysis, DVT in the left leg, and neuropathy who was having diarrhea off and on for the past few years. The patient's stated that they did see Dr. Garcia for this as medications given by various PCPs had not helped. She stated he was started on FiberCon and levsin and this caused severe constipation to the point of impaction. She had to give him a few enemas and after this he began having extreme watery diarrhea which did not stopped. She did not want him to have anymore fibercon or levsin. She stated he had some nausea as well as some vomiting with diffuse abdominal pain. He presented to the office of [facility] on 09/22/2018 and a diarrhea panel and lab work were ordered. The diarrhea panel was negative, but his labs showed a creatinine of 4.9, a sodium of 129, a potassium of 3.6, and a GFR of 12. His white blood cell count was elevated at 15.8 in the office. Test results were discussed with the patient's and it was felt that he would need direct admission for IV fluids, antiemetics, and a trial of Xifaxan for his diarrhea. Hospital Course Hospital Course: After admission patient was noted to have stool in the rectum and was given a couple of enemas with some results. Patient was noted to have difficulty with swallowing and had a modified barium swallow without obvious obstruction. noted that he had a long history of difficulty with swallowing and this was nothing new. Reglan was increased to 5 mg. Poor renal function noted on laboratory data drawn as an outpatient was hard to explain . Patient was seen by surgeon Dr. Maravilla with notation that he would not pursue any further evaluation such as barium swallow or EGD unless deemed necessary for his overall care. Patient was started on a mechanical soft diet with thin liquids. Patient's white blood cell count did return to normal. Kidney function remained normal. CT of the abdomen and pelvis revealed bolus of stool in the colon and enemas were repeated. He did have good results and began to feel better. Xifaxan was restarted. Patient was also noted to have urinary tract infection with Proteus mirabilis and E. coli. He was started on Levaquin p.o. for this. Patient's felt that he needed a higher level of care. He was accepted by [facility] but would be unable to take Xifaxan there due to the cost. Samples were provided for him to be taken as an outpatient at [facility]. Thus on 09/05 patient was feeling much better. He had no further stools during the night. He had no abdominal pain. He was able to eat without problems. He was ready to be transferred to [facility] for further care and rehab. He was discharged in stable and satisfactory condition. Follow-up to be at [facility]. Medications as per list. Objective Vital signs: Temp Pulse Resp BP Pulse Ox 97.6 F 83 17 132/84 95 10/02/18 07:15 10/02/18 07:15 10/02/18 07:15 10/02/18 07:15 10/02/18 08:34 Narrative: Exam Vital signs and Labs for Last 24 Hours: Temp Pulse Resp BP Pulse Ox 97.6 F 83 17 132/84 95 10/02/18 07:15 10/02/18 07:15 10/02/18 07:15 10/02/18 07:15 10/02/18 07:15 I & O for Last 24 hours: Intake & Output 09/29/18 09/30/18 10/01/18 10/02/18 11:59 11:59 11:59 11:59 Intake Total 3048 / 3048 600 / 600 3431 / 3431 1663 / 1663 Output Total 400 / 400 Balance 2648 / 2648 600 / 600 3431 / 3431 1663 / 1663 Weight 173 lb 9 oz 173 lb 12.893 oz 175 lb 7 oz 176 lb 2 oz Microbiology Reports for the Last 24 Hours: Microbiology 09/28/18 03:40 Urine,Clean Catch Urine Culture - Final Proteus mirabilis Escherichia coli - Constitutional no acute distress Comments: Sitting on the bedside eating his breakfast. Appears very comfortable. - *Routine Respiratory Exam Present: CTA bilaterally (Anteriorly and posteriorly) - *Routine Cardiovascular Exam Present: RRR - *Routine Abdominal Exam Present: soft, normoactive bowel sounds. Absent: tenderness - *Routine Extremities Exam Absent: edema, calf tenderness - *Routine Neurological Exam Present: alert, oriented X3 Results Completed studies during hospitalization [Text1]: Laboratory Tests 09/27/18 10/01/18 15:10 06:03 WBC 13.2 H 10.0 RBC 4.41 L 3.82 L Hgb 13.6 L 12.1 L Hct 41.2 L 36.3 L Plt Count 366 261 Neut % (Auto) 81.4 H 67.0 Lymph % (Auto) 12.7 20.0 [place] % (Auto) 4.5 6.8 Labs on day of discharge: Preliminary micro results at discharge 09/27/18 15:10 Blood Culture - Preliminary Blood NO GROWTH AFTER 48 HOURS 09/27/18 15:10 Blood Culture - Preliminary Blood NO GROWTH AFTER 48 HOURS Laboratory Tests 09/29/18 10/01/18 05:40 06:03 Sodium 136 Potassium 4.3 Chloride 103 Carbon Dioxide 27 Anion Gap 10.3 BUN 4 L Creatinine 0.59 L Estimated Creat Clear 67 Calcium 8.2 L Total Bilirubin 0.6 AST 14 L D ALT 14 Alkaline Phosphatase 87 Total Protein 4.6 L Albumin 1.7 L D Globulin 2.9 Albumin/Globulin Ratio 0.6 L - Impressions 09/28/18 Modified barium swallow Impression: Mild neurogenic dysphagia. No evidence of aspiration. CT of abdomen and pelvis 09/29/18 Impression: Large amount of colonic feces at the rectosigmoid and rectal area suggesting fecal impaction. Distal sigmoid colon wall is diffusely thickened and more focal along the right lateral wall. This could be from colitis because segment is fairly long although because of the focal wall thickening neoplasm is not entirely ruled out. This occurs proximal to the area fecal impaction. This may require either direct inspection or follow-up imaging. 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 Gallbladder sludge or noncalcified gallstones without acute inflammation. DS: Diagnosis - Discharge Diagnosis (1) Diarrhea Status: Acute (2) Dehydration Status: Acute (3) Renal failure Status: Acute (4) Hyponatremia Status: Acute (5) Hypokalemia Status: Acute (6) Fecal impaction in rectum Status: Acute (7) Leukocytosis Status: Acute (8) Hypertension Status: Chronic (9) Hyperlipidemia Status: Chronic (10) History of CVA with residual deficit Status: Chronic (11) History of prostate cancer Status: Chronic (12) Neuropathy Status: Chronic (13) Dysphagia Status: Acute (14) Urinary tract infection due to Proteus Status: Acute (15) E. coli UTI Status: Acute Discharge Plan - Patient Discharge Instructions Patient Instructions: Dehydration, Escherichia coli Infection, DI for Dehydration -- Adult, DI for Hypokalemia, DI for Diarrhea and Traveler's Diarrhea -- Adult, DI for Weight Loss, DI for Multiple Drug-resistant Organism (MDRO) Infection, DI for Oropharyngeal Dysphagia - Follow up Plan Home Medications: Home Medications Medication Instructions Recorded Confirmed Type Acetaminophen 650 mg PO Q4HP PRN 09/27/18 09/27/18 History Aspirin [Aspir 81] 81 mg PO DAILY 09/27/18 09/27/18 History Atorvastatin Calcium [Atorvastatin 20 mg PO HS 09/27/18 09/27/18 History 20mg Tab] Bifidobacterium Infantis [Align] 4 mg PO DAILY 09/27/18 09/27/18 History Dantrolene Sodium [Dantrium] 100 mg PO BID 09/27/18 09/27/18 History Dextran 70/Hypromellose 1 each OP HS 09/27/18 09/27/18 History [Artificial Tears] Diclofenac Sodium [Voltaren 100gm 1 applicatio TP DIRECTED PRN 09/27/18 09/27/18 History Topical Gel] Ergocalciferol (Vitamin D2) 50,000 unit PO WEEKLY 09/27/18 09/27/18 History [Vitamin D2] Gabapentin 600 mg PO HS 09/27/18 09/27/18 History Gabapentin [Gabapentin 400mg Cap] 400 mg PO DAILY 09/27/18 09/27/18 History Glycopyrrolate 1 mg PO TID 09/27/18 09/27/18 History Metoprolol Succinate [Toprol XL 100 mg PO DAILY 09/27/18 09/27/18 History 100mg tablet] Mirtazapine [Remeron 15mg tablet] 15 mg PO HS 09/27/18 09/27/18 History Omeprazole [Omeprazole 20mg 20 mg PO DAILY 09/27/18 09/27/18 History Capsule] Oxazepam 10 mg PO TIDP PRN 09/27/18 09/27/18 History Rivaroxaban [Xarelto 20mg Tablet] 20 mg PO DAILY 09/27/18 09/27/18 History Vitamin B Complex 1 each PO DAILY 09/27/18 09/27/18 History Prescriptions/Medication Reconciliation: No Action Rivaroxaban [Xarelto 20mg Tablet] 20 mg PO DAILY Dantrolene Sodium [Dantrium] 100 mg PO BID Glycopyrrolate 1 mg PO TID Oxazepam 10 mg PO TIDP PRN PRN Reason: ANXIETY/WITHDRAWAL Omeprazole [Omeprazole 20mg Capsule] 20 mg PO DAILY Gabapentin [Gabapentin 400mg Cap] 400 mg PO DAILY Metoprolol Succinate [Toprol XL 100mg tablet] 100 mg PO DAILY Gabapentin 600 mg PO HS Acetaminophen 650 mg PO Q4HP PRN PRN Reason: PAIN/FEVER Dextran 70/Hypromellose [Artificial Tears] 1 each OP HS Bifidobacterium Infantis [Align] 4 mg PO DAILY Vitamin B Complex 1 each PO DAILY Ergocalciferol (Vitamin D2) [Vitamin D2] 50,000 unit PO WEEKLY Aspirin [Aspir 81] 81 mg PO DAILY Mirtazapine [Remeron 15mg tablet] 15 mg PO HS Atorvastatin Calcium [Atorvastatin 20mg Tab] 20 mg PO HS Diclofenac Sodium [Voltaren 100gm Topical Gel] 1 applicatio TP DIRECTED PRN PRN Reason: KNEE
--- NOTE | 2018-10-03 09:33 | Progress Note ---
Internal Medicine - PN: Subj *Date: 10/03/18 *Time: 09:31 Interval history: Patient did not go to [facility] yesterday. He states he had a good day yesterday. He is ready for discharge today. He slept well and is eating well. Exam Vital signs and Labs for Last 24 Hours: Temp Pulse Resp BP Pulse Ox 98.1 F 89 18 141/84 H 95 10/03/18 08:00 10/03/18 08:00 10/03/18 08:00 10/03/18 08:00 10/03/18 08:15 I & O for Last 24 hours: Intake & Output 09/30/18 10/01/18 10/02/18 10/03/18 11:59 11:59 11:59 11:59 Intake Total 600 / 600 3431 / 3431 1663 / 1663 1360 / 1360 Balance 600 / 600 3431 / 3431 1663 / 1663 1360 / 1360 Weight 173 lb 12.893 oz 175 lb 7 oz 176 lb 2 oz 181 lb 1 oz Microbiology Reports for the Last 24 Hours: Microbiology 09/27/18 15:10 Blood Blood Culture - Final NO GROWTH AFTER 5 DAYS 09/27/18 15:10 Blood Blood Culture - Final NO GROWTH AFTER 5 DAYS 09/28/18 03:40 Urine,Clean Catch Urine Culture - Final Proteus mirabilis Escherichia coli - Constitutional no acute distress Comments: Sitting on the bedside eating his breakfast. - *Routine Respiratory Exam Present: CTA bilaterally (Anteriorly and posteriorly) - *Routine Cardiovascular Exam Present: RRR - *Routine Extremities Exam Absent: edema - *Routine Neurological Exam Present: alert, oriented X3 Assessment and Plan (1) Diarrhea Current visit: Yes Status: Acute Category: Medical Code(s): R19.7 - Diarrhea, unspecified (2) Dehydration Current visit: Yes Status: Acute Category: Medical Code(s): E86.0 - Dehydration (3) Renal failure Current visit: Yes Status: Acute Category: Medical Code(s): N19 - Unspecified kidney failure (4) Hyponatremia Current visit: Yes Status: Acute Category: Medical Code(s): E87.1 - Hypo- osmolality and hyponatremia (5) Hypokalemia Current visit: Yes Status: Acute Category: Medical Code(s): E87.6 - Hypokalemia (6) Fecal impaction in rectum Current visit: Yes Status: Acute Category: Medical Code(s): K56.41 - Fecal impaction (7) Leukocytosis Current visit: Yes Status: Acute Category: Medical Code(s): D72.829 - Elevated white blood cell count, unspecified (8) Hypertension Current visit: Yes Status: Chronic Category: Medical Code(s): I10 - Essential (primary) hypertension (9) Hyperlipidemia Current visit: Yes Status: Chronic Category: Medical Code(s): E78.5 - Hyperlipidemia, unspecified (10) History of CVA with residual deficit Current visit: Yes Status: Chronic Category: Medical Code(s): I69.30 - Unspecified sequelae of cerebral infarction (11) History of prostate cancer Current visit: Yes Status: Chronic Category: Medical Code(s): Z85.46 - Personal history of malignant neoplasm of prostate (12) Neuropathy Current visit: Yes Status: Chronic Category: Medical Code(s): G62.9 - Polyneuropathy, unspecified (13) Dysphagia Current visit: Yes Status: Acute Category: Medical Code(s): R13.10 - Dysphagia, unspecified (14) Urinary tract infection due to Proteus Current visit: Yes Status: Acute Category: Medical Code(s): N39.0 - Urinary tract infection, site not specified; B96.4 - Proteus (mirabilis) (morganii) as the cause of diseases classified elsewhere (15) E. coli UTI Current visit: Yes Status: Acute Category: Medical Code(s): N39.0 - Urinary tract infection, site not specified; B96.20 - Unspecified Escherichia coli [E. coli] as the cause of diseases classified elsewhere
== END 2018-10-03 11:10 | DRG 389 ==
LOC: 2ND 14:37
PROVIDERS: ADMIT Family Medicine; ATTEND Family Medicine
CPT/HCPCS: 36415; 70371; 74177; 80048; 80053; 81001; 85025; 87040; 87086; 87088; 87186; 87506; 92611; 97110; 97163; 97165; 97530; J2405; Q9967

== ENCOUNTER → 2019-04-09 13:12 | Outpatient (CLI) | payer MEDICARE, OTHER, SELFPAY ==
[2019-04-09 13:27] LABS: Basophils # 0.1 K/mm3 (0-0.2); Basophils % 0.6 % (0.1-2.0); Eosinophils # 0.4 K/mm3 (0.0-0.4); Eosinophils % 2.6 % (0.1-12.0); Hematocrit 41.5 % (42.0-52.0); Hemoglobin 13.5 g/dL (14.1-18.0); Lymphocytes % 13.4 % (10-50); Mean Corpuscular HGB Conc 32.6 g/dL (31.8-35.4); Mean Corpuscular Hemoglobin 31.5 pg (27.0-31.2); Mean Corpuscular Volume 96.7 fl (80-94); Mean Platelet Volume 7.8 fl (7.4-10.4); Monocytes # 1.1 K/mm3 (0.1-1.0); Monocytes % 7.5 % (1.7-9.3); Neutrophils # 11.1 K/mm3 (1.8-7.8); Neutrophils % 76.1 % (37.0-80.0); Platelet Count 387 K/mm3 (142-424); Red Blood Count 4.29 M/mm3 (4.60-6.20); White Blood Count 14.6 K/mm3 (4.8-10.8)
== END ==
LOC: LAB 13:12 → LAB.DROPOF 14:51
PROVIDERS: Visit Provider Family Medicine
DX: D64.9 Anemia, unspecified (principal)
CPT/HCPCS: 85025

== ENCOUNTER → 2020-01-08 15:25 | Outpatient (CLI) | payer MEDICARE, OTHER, SELFPAY ==
[2020-01-08 15:52] LABS: Basophils # 0.1 K/mm3 (0-0.2); Basophils % 0.5 % (0.1-2.0); Eosinophils # 0.4 K/mm3 (0.0-0.4); Eosinophils % 2.4 % (0.1-12.0); Hematocrit 39.3 % (42.0-52.0); Hemoglobin 14.6 g/dL (14.1-18.0); Lymphocytes # 2.1 K/mm3 (0.7-4.5); Lymphocytes % 12.9 % (10-50); Mean Corpuscular Hemoglobin 36.8 pg (27.0-31.2); Mean Corpuscular Volume 99.4 fl (80-94); Mean Platelet Volume 8.6 fl (7.4-10.4); Monocytes # 1.3 K/mm3 (0.1-1.0); Neutrophils # 12.1 K/mm3 (1.8-7.8); Neutrophils % 76.2 % (37.0-80.0); Platelet Count 366 K/mm3 (142-424); Red Blood Count 3.95 M/mm3 (4.60-6.20); Red Cell Distribution Width 14.1 % (11.5-17.5); White Blood Count 15.9 K/mm3 (4.8-10.8)
[2020-01-08 15:53] LABS: MANUAL DIFFERENTIAL MANUAL DIFFERENTIAL (MANUAL DIFF)
[2020-01-08 17:26] LABS: Eosinophils % 2 % (0-3); Lymphocytes % 13 % (10-50); Monocytes % 7 % (2-9); Neutrophils % 78 % (42-76); Total Cells Counted 100
[2020-01-08 17:27] LABS: Platelet Estimate Normal; RBC Morphology Normal
[2020-01-08 18:01] LABS: Alanine Aminotransferase 16 U/L (12-78); Albumin Level 2.7 g/dl (3.5-5.0); Alkaline Phosphatase 116 U/L (38-126); Anion Gap 13.5 mEq/L (5-15); Aspartate Amino Transferase 32 U/L (17-59); Bilirubin,Total 0.6 mg/dl (0.2-1.3); Blood Urea Nitrogen 10 mg/dl (9-20); Calcium 8.2 mg/dl (8.4-10.2); Carbon Dioxide 24 mmol/L (22.0-30.0); Chloride 96 mmol/L (98-107); Estimated Glomerular Filt Rate 160 ml/min (>60); GFR (African American) 194 ML/MIN (>60); Globulin 2.6 g/dL (1.3-3.2); Glucose 128 mg/dl (74-100); Potassium 3.5 mmoL/L (3.5-5.1); Sodium 130 mmol/L (136-145); Total Protein,Serum 5.3 g/dl (6.3-8.2)
== END ==
PROVIDERS: Visit Provider Nurse Practitioner Family
DX: I10 Essential (primary) hypertension (principal)
CPT/HCPCS: 80053; 85007; 85025

== ENCOUNTER → 2020-01-09 16:34 | Outpatient (CLI) | payer MEDICARE, OTHER, SELFPAY ==
[2020-01-09 16:37] LABS: Microscopic, Urine URINE MICROSCOPIC (MICROSCOPIC)
[2020-01-09 17:47] LABS: Appearance,Urine SL CLOUDY (Clear); Blood, Urine 3+ (Negative); Color,Urine YELLOW (Yellow); Glucose,Urine (UA) Negative (Negative); Ketones,Urine Negative (Negative); Leukocyte Esterase,Urine 2+ (Negative); Nitrate,Urine POSITIVE (Negative); Protein,Urine 1+ (Negative); Urobilinogen,Urine 0.2 EU/dl (0.2)
[2020-01-09 17:53] LABS: Bilirubin,Urine Negative (Negative)
[2020-01-09 18:37] LABS: Bacteria,Urine 3+ /lpf; RBC,Urine Occasional #/hpf (0-3); WBC,Urine 20-50 #/hpf (0-3)
== END ==
PROVIDERS: Visit Provider Nurse Practitioner Family
DX: N39.0 Urinary tract infection, site not specified (principal); B96.20 Unspecified Escherichia coli [E. coli] as the cause of diseases classified elsewhere
CPT/HCPCS: 81001; 87086; 87088; 87186

== ENCOUNTER 2020-04-29 08:45 | Outpatient (CLI) | payer MEDICARE, OTHER, SELFPAY ==
[2020-04-29 08:45] VITALS: BMI 21.5
[2020-04-29 09:15] LABS: Hematocrit 36.8 % (42.0-52.0); Hemoglobin 11.8 g/dL (14.1-18.0)
--- NOTE | 2020-04-29 09:53 | PC.NURSE ---
0940-report called to [facility] [place], spoke with Luul Tapia RN. updated report given on pt condition and transport arranged for pt to return back to [place].
--- NOTE | 2020-04-29 10:12 | PC.NURSE ---
1010-pt assisted back to and transported back to [facility] with transport.
== END 2020-04-29 10:05 | disposition home or self-care (01) ==
LOC: INF 08:45
PROVIDERS: PCP Family Medicine; Visit Provider Family Medicine
DX: D64.9 Anemia, unspecified (principal)
CPT/HCPCS: 85014; 85018

== ENCOUNTER → 2020-05-13 07:12 | Outpatient (CLI) | payer MEDICARE, OTHER, SELFPAY ==
[2020-05-13 07:39] LABS: Basophils # 0.1 K/mm3 (0-0.2); Basophils % 0.5 % (0.1-2.0); Eosinophils # 0.5 K/mm3 (0.0-0.4); Eosinophils % 4.6 % (0.1-12.0); Hematocrit 29.2 % (42.0-52.0); Hemoglobin 9.7 g/dL (14.1-18.0); Lymphocytes # 1.8 K/mm3 (0.7-4.5); Lymphocytes % 16.8 % (10-50); Mean Corpuscular HGB Conc 33.1 g/dL (31.8-35.4); Mean Corpuscular Hemoglobin 36.2 pg (27.0-31.2); Mean Corpuscular Volume 109.4 fl (80-94); Mean Platelet Volume 7.7 fl (7.4-10.4); Monocytes # 0.8 K/mm3 (0.1-1.0); Monocytes % 7.4 % (1.7-9.3); Neutrophils # 7.4 K/mm3 (1.8-7.8); Neutrophils % 70.8 % (37.0-80.0); Platelet Count 335 K/mm3 (142-424); Red Blood Count 2.67 M/mm3 (4.60-6.20); Red Cell Distribution Width 15.8 % (11.5-17.5); White Blood Count 10.5 K/mm3 (4.8-10.8)
== END ==
PROVIDERS: Visit Provider Family Medicine
DX: I10 Essential (primary) hypertension (principal)
CPT/HCPCS: 85025

== ENCOUNTER → 2020-06-06 11:02 | Outpatient (CLI) | payer MEDICARE, OTHER, MEDICAID, SELFPAY ==
[2020-06-06 11:45] LABS: Basophils # 0.1 K/mm3 (0-0.2); Basophils % 0.5 % (0.1-2.0); Eosinophils # 0.4 K/mm3 (0.0-0.4); Eosinophils % 3.7 % (0.1-12.0); Hematocrit 32.1 % (42.0-52.0); Hemoglobin 10.7 g/dL (14.1-18.0); Lymphocytes # 1.2 K/mm3 (0.7-4.5); Lymphocytes % 9.9 % (10-50); Mean Corpuscular HGB Conc 33.5 g/dL (31.8-35.4); Mean Corpuscular Hemoglobin 35.1 pg (27.0-31.2); Mean Platelet Volume 8.3 fl (7.4-10.4); Monocytes # 0.8 K/mm3 (0.1-1.0); Neutrophils # 9.3 K/mm3 (1.8-7.8); Neutrophils % 78.9 % (37.0-80.0); Platelet Count 264 K/mm3 (142-424); Red Blood Count 3.06 M/mm3 (4.60-6.20); Red Cell Distribution Width 13.8 % (11.5-17.5); White Blood Count 11.8 K/mm3 (4.8-10.8)
== END ==
PROVIDERS: Visit Provider Family Medicine
DX: I10 Essential (primary) hypertension (principal)
CPT/HCPCS: 36415; 85025

== ENCOUNTER 2020-07-02 13:43 | Inpatient (IN) | payer MEDICARE, OTHER, MEDICAID, SELFPAY ==
[2020-07-02] VITALS (16 sets, daily range): BP systolic 86–108; BP diastolic 52–75; PULSE 73–143; RESP 18–22; TEMP 36.7–36.8; O2SAT 71–98; BMI 20.7; BMI 19.8
--- NOTE | 2020-07-02 13:39 | ECG_ITS ---
APPROVED REPORT Exam: Resting ECG HR:116 bpm ECG Measurements Heart Rate 116 AXES IA 144 P 23 QRSd 86 QRS -35 QT 288 T 53 QTc 400 Conclusion Sinus tachycardia Left axis deviation Low voltage QRS Inferior infarct, old changes with old poor r wave progression Abnormal ECG Electronically signed by : True Ledezma, 07/03/2020 21:19:47
--- NOTE | 2020-07-02 14:47 | XR_ITS ---
PROCEDURE: XR CHEST PORTABLE CLINICAL HISTORY: cough COMPARISON: CR CXR2 CHEST-AP VIEW ONLY from 10/31/2014 CR CXR CHEST(2 VIEWS-NOT PORTABLE) from 01/26/2016 CT CTAC CTA-CHEST from 01/27/2016 CR CXR2 CHEST-AP VIEW ONLY from 10/11/2016 FINDINGS: Heart size is normal. There is prominence of the aortic knob which is more prominent than when compared to the previous exam. Patchy density is present in the right lung base consistent with an area of atelectasis or infiltrate with small right effusion. Left lung is clear. Old left proximal humerus fracture. Calcification in the axilla unchanged. IMPRESSION: Right lower lobe atelectasis or infiltrate with small effusion. Increasing prominence of the aortic knob suspicious for aortic aneurysm. Chest CT may further evaluate Dictated by: Praveen Simpson MD 07/02/2020 15:24 Praveen Simpson MD in [place] 07/02/2020 15:24
[2020-07-02 14:55] LABS: Adenovirus,PCR Not Detected (NotDetected); Bordetella Pertussis Not Detected (NotDetected); Chlamydophila Pneumoniae, PCR Not Detected (NotDetected); Coronavirus 19, PCR Not Detected (NotDetected); Coronavirus 229E Not Detected (NotDetected); Coronavirus NL63 Not Detected (NotDetected); Coronavirus OC43 Not Detected (NotDetected); Coronovirus HKU1,PCR Not Detected (NotDetected); Human Metapneumovirus Not Detected (NotDetected); Influenza A, PCR Not Detected (NotDetected); Influenza AH1, 2009 Not Detected (NotDetected); Influenza AH1, PCR Not Detected (NotDetected); Influenza AH3,PCR Not Detected (NotDetected); Influenza B, PCR Not Detected (NotDetected); Mycoplasma Pneumoniae, PCR Not Detected (NotDetected); Parainfluenza 1, PCR Not Detected (NotDetected); Parainfluenza 2, PCR Not Detected (NotDetected); Parainfluenza 3, PCR Not Detected (NotDetected); Parainfluenza 4, PCR Not Detected (NotDetected); Respiratory Syncytial Virus Not Detected (NotDetected); Rhinovirus/Enterovirus Not Detected (NotDetected)
--- NOTE | 2020-07-02 14:58 | HMH.EDSOB ---
ED Disposition Clinical Impression: Hyponatremia, Acute respiratory failure with hypoxia Community acquired pneumonia Qualifiers: Laterality: right Lung location: lower lobe of lung Qualified Code(s): J18.9 - Pneumonia, unspecified organism Congestive heart failure Qualifiers: Heart failure type: systolic Heart failure chronicity: chronic Qualified Code(s): I50.22 - Chronic systolic (congestive) heart failure Thoracic aortic aneurysm (TAA) Qualifiers: Presence of rupture: without rupture Qualified Code(s): I71.2 - Thoracic aortic aneurysm, without rupture Disposition: Admitted As Inpatient Condition on Discharge: Fair Referrals: Beatrice Monroe MD [Primary Care Provider] - - Critical Care Critical Care Time: No Attestation: On 07/02/20, the high probability of a clinically significant, sudden or life threatening deterioration of the following system(s) required my full and direct attention, intervention and personal management. The time I documented below is in addition to time spent performing reported procedures but includes the following listed in this critical care notation. Medical Decision Making - Medical Records Medical records reviewed: Yes: I reviewed the patient's medical records. - Hero Inquiry Pt receiving controlled substance: No Vital Signs: 07/02/20 13:43 07/02/20 14:00 07/02/20 14:30 Temperature 98.1 F Temperature Source Oral Pulse Rate 118 H 118 H Pulse Rate [Right] 101 H Respiratory Rate 20 18 20 Blood Pressure 91/66 L 97/68 L Blood Pressure [Right Arm] 91/62 L Blood Pressure Mean 74 77 Blood Pressure Mean [Right Arm] 71 02 Sat by Pulse Oximetry 98 94 L 93 L Oxygen Delivery Method Nasal Cannula Oxygen Flow Rate (LPM) 2 07/02/20 15:00 07/02/20 15:30 07/02/20 17:39 Temperature Temperature Source Pulse Rate 117 H 124 H 124 H Pulse Rate [Right] Respiratory Rate 18 22 Blood Pressure 96/67 L 94/59 L 108/68 L Blood Pressure [Right Arm] Blood Pressure Mean 76 75 81 Blood Pressure Mean [Right Arm] 02 Sat by Pulse Oximetry 93 L 80 L 95 Oxygen Delivery Method Oxygen Flow Rate (LPM) - Lab Data Lab Results 07/02/20 13:51: WBC 13.3 H, RBC 3.53 L, Hgb 12.5 L, Hct 37.6 L, MCV 106.5 H, MCH 35.3 H, MCHC 33.2, RDW 13.8, Plt Count 221, MPV 8.2, Neut % (Auto) 83.9 H, Lymph % (Auto) 9.0 L, [place] % (Auto) 5.6, Eos % (Auto) 1.3, Baso % (Auto) 0.2, Neut # (Auto) 11.2 H, Lymph # (Auto) 1.2, [place] # (Auto) 0.7, Eos # (Auto) 0.2, Baso # (Auto) 0.0 07/02/20 13:51: Sodium 122 L, Potassium 5.1, Chloride 94 L, Carbon Dioxide 26, Anion Gap 7.1, BUN 16, Creatinine 0.50 L, Estimated Creat Clear 58, Estimated GFR 160, Est GFR ( Amer) 193, Glucose 95, Calcium 7.8 L, Total Bilirubin 0.9, AST 58, ALT 22, Alkaline Phosphatase 181 H, Troponin I < 0.01, NT-Pro-B Natriuret Pep 1510 H, Total Protein 5.2 L, Albumin 2.3 L, Globulin 2.9, Albumin/Globulin Ratio 0.8 L, Lipase 21 L, TSH 2.22 07/02/20 13:51: Lactate 1.4 07/02/20 13:51: Chlamy pneumoniae PCR Not detected, Adenovirus (PCR) Not detected, B. pertussis DNA (PCR) Not detected, Coronavirus OC43 (PCR) Not detected, Coronavirus HKU1 (PCR) Not detected, Coronavirus 229E (PCR) Not detected, SARS-CoV-2 (PCR) Not detected, Coronavirus NL63 (PCR) Not detected, Human Metapneumovir PCR Not detected, Influenza A (H1) PCR Not detected, Influ A (H1N1/09) PCR Not detected, Influenza A (H3) PCR Not detected, Influenza Type A (PCR) Not detected, Influenza Type B (PCR) Not detected, M. pneumoniae (PCR) Not detected, Parainfluenza 1 (PCR) Not detected, Parainfluenza 2 (PCR) Not detected, Parainfluenza 3 (PCR) Not detected, Parainfluenza 4 (PCR) Not detected, RSV (PCR) Not detected, Entero/Rhino (PCR) Not detected 07/02/20 14:48: Specimen Source Right radial, O2 % 2 lpm nc, ABG pH 7.38, ABG pCO2 37.9, ABG pO2 84.1, ABG HCO3 21.8 L, ABG Total CO2 23.0, ABG O2 Saturation 96, ABG Base Excess -3.3 L, Praveen Test Patient unable 07/02/20 15:15: PT
[2020-07-02 15:01] LABS: Potassium 5.1 mmoL/L (3.5-5.1); Sodium 122 mmol/L (136-145)
[2020-07-02 15:03] LABS: Alanine Aminotransferase 22 U/L (12-78); Alkaline Phosphatase 181 U/L (38-126); Aspartate Amino Transferase 58 U/L (17-59); Basophils % 0.2 % (0.1-2.0); Bilirubin,Total 0.9 mg/dl (0.2-1.3); Blood Urea Nitrogen 16 mg/dl (9-20); Carbon Dioxide 26 mmol/L (22.0-30.0); Creatinine Clearance Estimated 58 mL/min (50-200); Eosinophils # 0.2 K/mm3 (0.0-0.4); Eosinophils % 1.3 % (0.1-12.0); Estimated Glomerular Filt Rate 160 ml/min (>60); GFR (African American) 193 ML/MIN (>60); Hematocrit 37.6 % (42.0-52.0); Hemoglobin 12.5 g/dL (14.1-18.0); Lactic Acid 1.4 mmol/L (0.7-2.1); Lipase 21 U/L (23-300); Lymphocytes # 1.2 K/mm3 (0.7-4.5); Mean Corpuscular HGB Conc 33.2 g/dL (31.8-35.4); Mean Corpuscular Hemoglobin 35.3 pg (27.0-31.2); Mean Corpuscular Volume 106.5 fl (80-94); Mean Platelet Volume 8.2 fl (7.4-10.4); Monocytes # 0.7 K/mm3 (0.1-1.0); Monocytes % 5.6 % (1.7-9.3); Neutrophils # 11.2 K/mm3 (1.8-7.8); Neutrophils % 83.9 % (37.0-80.0); Platelet Count 221 K/mm3 (142-424); Red Blood Count 3.53 M/mm3 (4.60-6.20); Red Cell Distribution Width 13.8 % (11.5-17.5); White Blood Count 13.3 K/mm3 (4.8-10.8)
[2020-07-02 15:04] LABS: Albumin Level 2.3 g/dl (3.5-5.0); Albumin/Globulin Ratio 0.8 (1.1-1.8); Calcium 7.8 mg/dl (8.4-10.2); Globulin 2.9 g/dL (1.3-3.2); Glucose 95 mg/dl (74-100); Total Protein,Serum 5.2 g/dl (6.3-8.2)
--- NOTE | 2020-07-02 15:07 | PC.NURSE ---
rad here for cxr
[2020-07-02 15:15] LABS: NT Pro Brain Natriuretic Pep. 1510 pg/mL (0-450)
[2020-07-02 15:18] LABS: Troponin I < 0.01 ng/ml (0.00-0.034)
[2020-07-02 15:35] LABS: Anion Gap 7.1 mEq/L (5-15); Chloride 94 mmol/L (98-107)
[2020-07-02 15:36] LABS: Thyroid Stimulating Hormone 2.22 uIU/mL (0.465-4.68)
--- NOTE | 2020-07-02 15:41 | CT_ITS ---
PROCEDURE: CT ANGIO CHEST CLINCIAL INDICATION: SOB, congestion, abnormal aorta COMPARISON: CT CTAC CTA-CHEST from 01/27/2016 TECHNIQUE: IV Contrast: 70ML Isovue 370 Axial images obtained with sagittal and coronal reformats. All CT scans at the facility use one or more dose reduction, viz: automated exposure control, ma/kV adjustment per patient size (including targeted exams where dose is matched to indication, i.e. head), or iterative reconstruction technique. FINDINGS: HEART AND MEDIASTINAL STRUCTURES: There is mild fusiform dilatation of the ascending thoracic aorta at 4.3 cm previously 4.1 cm. Proximal descending thoracic aorta is ectatic as well at 3.6 cm but not significantly changed. There is tortuosity of the aorta. No evidence pulmonary embolus. No mediastinal or hilar mass. The trachea is deviated toward the right in the mid mediastinum secondary to the ectatic and mildly dilated aorta. This was present on the previous exam. LUNGS AND PLEURAL SPACES: Small to medium-sized right pleural effusion with atelectatic changes. Calcified granulomas present in the left upper lobe. There are mild atelectatic changes in the left lower lobe with trace left-sided effusion. BONY STRUCTURES: Thoracic scoliosis convex right with multilevel degenerative changes UPPER ABDOMEN: Cholelithiasis ADDITIONAL FINDINGS: No other significant abnormalities. IMPRESSION: 1. No evidence of pulmonary embolus. 2. Fusiform aneurysmal dilatation of the ascending aorta at 4.3 cm slightly larger and mild dilatation of the proximal descending thoracic aorta at 3.6 cm not significantly changed 3. Small to medium-sized right effusion with atelectasis in the right lower lobe with trace left effusion and mild left basilar atelectasis. 4. Cholelithiasis Dictated by: Praveen Simpson MD 07/02/2020 16:43 Praveen Simpson MD in [place] 07/02/2020 16:43
[2020-07-02 15:46] LABS: INR 1.68 (0.9-1.1); Prothrombin Time 19.1 seconds (10.1-12.5)
[2020-07-02 15:47] LABS: Activated Partial Thrombo Time 41.2 seconds (22.8-30.6)
--- NOTE | 2020-07-02 15:47 | PC.NURSE ---
notified ER of critical PT
[2020-07-02 16:31] LABS: ABG Base Excess -3.3 mmol/L (-2.4-2.3); ABG HCO3 21.8 mmhg (22.0-26.0); ABG Oxygen Saturation 96 % (90-100); ABG PCO2 37.9 mmhg (35.0-45.0); ABG PH 7.38 mmol/L (7.35-7.45); ABG PO2 84.1 mmhg (80-100)
[2020-07-02 16:36] LABS: Oxygen 2 LPM NC %
[2020-07-02 16:37] LABS: Allen's Test Patient Unable; Source Right Radial
--- NOTE | 2020-07-02 17:08 | PC.NURSE ---
Dr Brisa noonan
--- NOTE | 2020-07-02 19:56 | PC.NURSE ---
Addendum entered by Shanell Hernandez CNA 07/02/20 20:47: CORRECTION. PT ARRIVED TO FLOOR VIA STRETCHER FROM ED W/STAFF AT 1953 Original Note: PT ARRIVED TO FLOOR VIA STRETCHER FROM W/STAFF AT 1953
[2020-07-03] VITALS (44 sets, daily range): BP systolic 70–109; BP diastolic 40–91; PULSE 58–144; RESP 18–22; TEMP 36.4–37.2; O2SAT 84–100; BMI 19.8
--- NOTE | 2020-07-03 04:48 | PC.NURSE ---
shift summary pt has audible wheezing with sats maintained 90% or above on 2Lpm via NC, with a rate ranging from 18-20. pt voids per brief, while changing pts brief there was blood in his urine. pt is alert and oriented X4. pt has a stage 2 ulcer on his coccyx. pt denies nausea, vomiting, or diarrhea.
--- NOTE | 2020-07-03 07:13 | HMH.PHAVTE ---
[facility] Pharmacy VTE Monitoring - Patient Demographics Admission date: 07/02/20 Report Date: 07/03/20 Time: 07:13 Allergies/Adverse Reactions: Patient Allergies prochlorperazine [From COMPAZINE] Allergy (Mild, Verified 09/27/18 16:45) DISORIENTED promethazine [From PHENERGAN] Allergy (Mild, Verified 09/27/18 16:45) DISORIENTED Height: 1.85 m Weight: 67.784 kg Patient Problems: Current Active Problems Hyponatremia (Acute) Community acquired pneumonia (Acute) Congestive heart failure (Acute) Acute respiratory failure with hypoxia (Acute) Thoracic aortic aneurysm (TAA) (Acute) - VTE Risk Labs: VTE Related Lab Results Hgb 12.5 g/dL (14.1-18.0) L 07/02/20 13:51 Hct 37.6 % (42.0-52.0) L 07/02/20 13:51 Plt Count 221 K/mm3 (142-424) 07/02/20 13:51 PT 19.1 seconds (10.1-12.5) H 07/02/20 15:15 INR 1.68 (0.9-1.1) H 07/02/20 15:15 APTT 41.2 seconds (22.8-30.6) H 07/02/20 15:15 BUN 16 mg/dl (9-20) 07/02/20 13:51 Creatinine 0.50 mg/dl (0.66-1.25) L 07/02/20 13:51 Estimated Creat Clear 58 mL/min (50-200) 07/02/20 13:51 VTE Risk Level: Moderate Risk - Prophylaxis VTE Prophylaxis Ordered?: Yes Types of VTE Prophylaxis: TEDS Knee High, Pharmacological Location of Applied Device: Bilateral Lower Extremeties Pharmacologic Type: Enoxaparin
--- NOTE | 2020-07-03 08:03 | HMH.PHAINT ---
MEDICATION RECONCILIATION COMPLETED USING [facility]
[2020-07-03 08:37] LABS: Basophils # 0.1 K/mm3 (0-0.2); Basophils % 0.3 % (0.1-2.0); Eosinophils # 0.2 K/mm3 (0.0-0.4); Hematocrit 36.4 % (42.0-52.0); Hemoglobin 11.6 g/dL (14.1-18.0); Lymphocytes % 5.1 % (10-50); Mean Corpuscular HGB Conc 31.8 g/dL (31.8-35.4); Mean Corpuscular Hemoglobin 34.7 pg (27.0-31.2); Mean Corpuscular Volume 109.2 fl (80-94); Mean Platelet Volume 8.4 fl (7.4-10.4); Monocytes # 0.8 K/mm3 (0.1-1.0); Monocytes % 4.1 % (1.7-9.3); Neutrophils # 17.3 K/mm3 (1.8-7.8); Neutrophils % 89.5 % (37.0-80.0); Platelet Count 215 K/mm3 (142-424); Red Blood Count 3.34 M/mm3 (4.60-6.20); White Blood Count 19.3 K/mm3 (4.8-10.8)
[2020-07-03 08:41] LABS: MANUAL DIFFERENTIAL MANUAL DIFFERENTIAL (MANUAL DIFF)
[2020-07-03 08:46] LABS: Chloride 97 mmol/L (98-107); Potassium 5.1 mmoL/L (3.5-5.1); Sodium 124 mmol/L (136-145)
[2020-07-03 08:49] LABS: Alanine Aminotransferase 19 U/L (12-78); Albumin/Globulin Ratio 0.8 (1.1-1.8); Alkaline Phosphatase 140 U/L (38-126); Anion Gap 12.1 mEq/L (5-15); Aspartate Amino Transferase 35 U/L (17-59); Bilirubin,Total 0.7 mg/dl (0.2-1.3); Blood Urea Nitrogen 19 mg/dl (9-20); Carbon Dioxide 20 mmol/L (22.0-30.0); Creatinine Clearance Estimated 56 mL/min (50-200); Estimated Glomerular Filt Rate 129 ml/min (>60); GFR (African American) 156 ML/MIN (>60); Globulin 2.6 g/dL (1.3-3.2); Total Protein,Serum 4.6 g/dl (6.3-8.2)
--- NOTE | 2020-07-03 08:49 | CA_ITS ---
APPROVED REPORT EXAM: Limited 2D Echocardiogram Senior Electrical Controls Engineer: Jen Tamez RVT Ht: 6 ft 0 in Wt: 149lbs BSA: 1.88 BP: 108/68 mmHg Indications: soa,resp. failure,chf,cva,hx prostate ca,pneumonia VERY TDS AND LIMITED STUDY-NO WINDOWS PT SCANNED BY [address] JOHN M-Mode Dimensions RVDd 3.45 cm (0.9-2.6) LA Diam 3.02 cm (1.9-4.0) LVDd 4.74 cm (3.5-5.7) Ao Diam 3.54 cm (2.0-3.7) LVDs 3.09 cm (3.5-5.7) IVSd 0.48 cm (0.6-1.1) PWd 0.56 cm (0.6-1.1) EF (Teich) 64.00% FS 34.80% EDV (Teich) 104.40 mL ESV (Teich) 37.60 mL Conclusion 1. Technically very limited and poor study, valvular structures are not well visualized, endocardial surfaces are very poorly visualized. If clinically indicated repeat study with Definity contrast is recommended. 2. Probably preserved left ventricular systolic function. 3. Moderately enlarged right ventricle with normal contractility. 4. No significant pericardial effusion noted. 5. Valvular structure and function cannot be evaluated from this study. Electronically signed by : Brian Logan, 07/03/2020 15:27:59
--- NOTE | 2020-07-03 08:49 | HMH.HP ---
*Admission Date: 07/02/20 *Chief complaint: hypoxia at correction *History of present illness: Mr. Gann is an 80-year-old male with a history of hypertension, stroke with left-sided paralysis, history of DVTs, history of Covid in April, and anemia. The patient is a resident of [facility] [place] and [facility] Gaviria was contacted yesterday by his nurse due to low oxygen saturations and the fact that he sounded like he was gurgling. She advised him to go to the emergency room. His states he had some leg swelling yesterday, which he does not normally have and she says he seemed to be short of breath. He was evaluated in the emergency room and was initially felt to have a pneumonia. His white blood cell count was elevated, his blood gas was relatively unremarkable, and his BNP was elevated at 1510. His chest x-ray showed a right lower lobe atelectasis versus infiltrate and a small effusion. There was also increased prominence of the aortic knob suspicious for aortic aneurysm therefore a CTA was ordered. The CTA did not show a pneumonia, but rather a small to medium sized right effusion with atelectasis in the right lower lobe and a trace left effusion. It also showed some aneurysmal dilatation of the ascending aorta as well as the proximal descending thoracic aorta. The patient was admitted and started on IV antibiotics as well as IV fluids. This a.m. his nurse contacted me due to low blood pressure of 70/40 and a heart rate in the 140s. She states he is likely to trigger for sepsis with his elevated white blood cell count which would require large amounts of IV fluids. His IV fluids have already been turned up to 200 mL/h due to his low blood pressure. His oxygen saturations have been in the 70s and 80s and his oxygen has been turned up to 4 L/min with sats in the low 90s. [facility] History I have reviewed the patient's past medical history: Yes Medical History: Reports:: Cancer (prostate), Cerebrovascular Accident, Deep Vein Thrombosis, Hyperlipidemia, Hypertension Denies:: Diabetes Mellitus Type 1, Diabetes Mellitus Type 2 *Have you ever received a pneumonia vaccine?: Yes *Have you received a flu vaccine this season?: Yes Other Medical History: Reports: Other (allergic rhinitis, neuropathy, Covid in Apr 2020) Other Surgeries: Yes: Hernia Repair, Skin Cancer Excision, Other (Prostate removed, back sx) - *Social History Last grade of school completed: High school graduate Smoking Status: Never smoker Alcohol Intake: never *Occupational Status:: retired Housing: assisted living facility Household Members: spouse *Travel in the last 8 weeks: None Family Hx:: Stroke Review of Systems - Constitutional Reports fatigue, Reports weakness, Denies fever(s) - Eyes Denies blurry vision, Denies double vision - ENT Denies nasal congestion, Denies sore throat - *Cardiovascular Reports shortness of breath, Denies chest pain - *Respiratory Reports shortness of breath, Denies cough - *Gastrointestinal Reports abdominal pain, Reports loose stools, Denies nausea, Denies vomiting - *Genitourinary Denies difficulty urinating, Denies painful urination - *Musculoskeletal Denies joint pain - *Neurologic Reports weakness, Denies headache(s) Meds Home Medications Medication Instructions Recorded Confirmed Type Atorvastatin Calcium [Lipitor 20mg 20 mg PO HS 09/27/18 07/03/20 History Tab] Bifidobacterium Infantis [Align] 4 mg PO DAILY 09/27/18 07/03/20 History Dantrolene Sodium [Dantrium] 50 mg PO BID 09/27/18 07/03/20 History Dextran 70/Hypromellose 1 drop OU HS 09/27/18 07/03/20 History [Artificial Tears] Diclofenac Sodium [Voltaren 100gm 1 applicatio TOPICAL QID PRN 09/27/18 07/03/20 History Topical Gel] Ergocalciferol (Vitamin D2) 50,000 unit PO WEEKLY 09/27/18 07/03/20 History [Vitamin D2] Gabapentin 300 mg PO TID 09/27/18 07/03/20 History Mirtazapine [Remeron 15mg tablet] 15 mg PO HS 09/27/18
[2020-07-03 08:50] LABS: Calcium 7.5 mg/dl (8.4-10.2); Glucose 88 mg/dl (74-100)
--- NOTE | 2020-07-03 09:01 | HMH.CNCARD ---
History of Present Illness Consult date: 07/03/20 Requesting physician: Beatrice Monroe Consult reason: shortness of breath Chief complaint: SOA History of present illness: This is an 80-year-old white gentleman who resides at [facility] and was found to have low oxygen saturations and abnormal lung sounds yesterday. [facility] G[facility] was contacted and the patient was brought to the emergency room here. The patient's states that yesterday he had sudden onset of shortness of breath, cough and bilateral lower extremity edema. The patient got short of breath and sounded as if he was gurgling when he was at the shelter. He had an associated cough. The patient was very lethargic and just not himself when he came to the emergency department. This morning the patient tells me that he feels much better and his breathing is better but he still sounds as if he is having some gurgling and crackles in his upper respiratory airways at times. He denies any chest pain or pressure. He denies any palpitations. He denies shortness of breath today but he does sound very short of breath when he is talking to me. He is unable to lie flat. He does have edema bilaterally. His white blood cell count is elevated and his BNP is elevated at 1510. His ABG was essentially unremarkable. He did have a CTA of the chest which showed a 4.3 cm ascending thoracic aneurysm and a 3.6 descending thoracic aneurysm. He had a small to moderate right effusion with atelectasis in the right lower lobe and a trace left effusion. He denies any fever, chills, nausea, vomiting, diarrhea. Of note the patient did have Covid in April of this year. This morning he is tachycardic with a heart rate in the 140s and hypotensive with a blood pressure of 70/40.His oxygen have dropped into the 70s. His mucous membranes are dry. He has no axillary sweat. [facility] History I have reviewed the patient's past medical history: Yes Medical History: Reports:: Cancer (prostate), Cerebrovascular Accident, Deep Vein Thrombosis, Hyperlipidemia, Hypertension Denies:: Diabetes Mellitus Type 1, Diabetes Mellitus Type 2 *Have you ever received a pneumonia vaccine?: Yes *Have you received a flu vaccine this season?: Yes Other Medical History: Reports: Other (allergic rhinitis, neuropathy) Other Surgeries: Yes: Hernia Repair, Skin Cancer Excision, Other (Prostate removed, back sx) - *Social History Last grade of school completed: High school graduate Smoking Status: Never smoker Alcohol Intake: never *Occupational Status:: retired Housing: assisted living facility Household Members: spouse *Travel in the last 8 weeks: None Family Hx:: Unable to obtain Meds Home Medications Medication Instructions Recorded Confirmed Type Atorvastatin Calcium [Lipitor 20mg 20 mg PO HS 09/27/18 07/03/20 History Tab] Bifidobacterium Infantis [Align] 4 mg PO DAILY 09/27/18 07/03/20 History Dantrolene Sodium [Dantrium] 50 mg PO BID 09/27/18 07/03/20 History Dextran 70/Hypromellose 1 drop OU HS 09/27/18 07/03/20 History [Artificial Tears] Diclofenac Sodium [Voltaren 100gm 1 applicatio TOPICAL QID PRN 09/27/18 07/03/20 History Topical Gel] Ergocalciferol (Vitamin D2) 50,000 unit PO WEEKLY 09/27/18 07/03/20 History [Vitamin D2] Gabapentin 300 mg PO TID 09/27/18 07/03/20 History Mirtazapine [Remeron 15mg tablet] 15 mg PO HS 09/27/18 07/03/20 History Omeprazole [Omeprazole 20mg 40 mg PO DAILY 09/27/18 07/03/20 History Capsule] Rivaroxaban [Xarelto 20mg Tablet*] 15 mg PO DAILY 09/27/18 07/03/20 History Citalopram Hydrobromide 20 mg PO DAILY 07/02/20 07/03/20 History [Citalopram 20mg Tablet] Melatonin 5 mg PO HS 07/02/20 07/03/20 History Metoprolol Tartrate [Lopressor 12.5 mg PO DAILY 07/02/20 07/03/20 History 25mg tablet] Potassium Chloride [Micro-K 10mEq 10 meq PO DAILY 07/02/20 07/03/20 History cap] Acetaminophen 325 mg PO BID 07/03/20 07/03/20 History Aspirin
[2020-07-03 09:02] LABS: Lactic Acid 2.4 mmol/L (0.7-2.1)
[2020-07-03 09:30] LABS: Microscopic, Urine URINE MICROSCOPIC (MICROSCOPIC)
[2020-07-03 09:37] LABS: Appearance,Urine CLOUDY (Clear); Blood, Urine 3+ (Negative); Color,Urine BROWN (Yellow); Glucose,Urine (UA) Negative (Negative); Ketones,Urine TRACE (Negative); Leukocyte Esterase,Urine 3+ (Negative); Nitrate,Urine POSITIVE (Negative); PH,Urine 6.5 (5.0-8.5); Protein,Urine 3+ (Negative)
[2020-07-03 09:47] LABS: Bilirubin,Urine 1+ (Negative)
--- NOTE | 2020-07-03 09:47 | SW/DCPLANNER ---
Addendum entered by Ellen Lynn 07/04/20 11:52: Updated patient information has been faxed to [facility] at [facility]. Original Note: This patient currently resides at [facility]. I have spoke with [facility] and she has stated that patient is [facility] level of care. Updated patient information has been faxed to [facility]. I will continue to follow up with [facility] until patient is medically stable for discharge.
[2020-07-03 09:52] LABS: Lymphocytes % 2 % (10-50); Monocytes % 4 % (2-9); Neutrophils % 91 % (42-76); Platelet Estimate Normal; Total Cells Counted 100
[2020-07-03 09:53] LABS: Macrocytosis 2+
[2020-07-03 10:07] LABS: Bacteria,Urine 2+ /lpf; RBC,Urine TNTC #/hpf (0-3)
--- NOTE | 2020-07-03 10:15 | HMH.PHACONS ---
- Pharmacy Consult Date: 07/03/20 Time: 10:15 Referring provider: DR. JOHN Reason for Consult:: VANCOMYCIN DOSING Allergies and ADEs:: Allergies Allergy/AdvReac Type Severity Reaction Status Date / Time prochlorperazine Allergy Mild DISORIENTED Verified 09/27/18 16:45 [From COMPAZINE] promethazine [From PHENERGAN] Allergy Mild DISORIENTED Verified 09/27/18 16:45 Home Medications:: Home Medications Medication Instructions Recorded Confirmed Type Atorvastatin Calcium [Lipitor 20mg 20 mg PO HS 09/27/18 07/03/20 History Tab] Bifidobacterium Infantis [Align] 4 mg PO DAILY 09/27/18 07/03/20 History Dantrolene Sodium [Dantrium] 50 mg PO BID 09/27/18 07/03/20 History Dextran 70/Hypromellose 1 drop OU HS 09/27/18 07/03/20 History [Artificial Tears] Diclofenac Sodium [Voltaren 100gm 1 applicatio TOPICAL QID PRN 09/27/18 07/03/20 History Topical Gel] Ergocalciferol (Vitamin D2) 50,000 unit PO WEEKLY 09/27/18 07/03/20 History [Vitamin D2] Gabapentin 300 mg PO TID 09/27/18 07/03/20 History Mirtazapine [Remeron 15mg tablet] 15 mg PO HS 09/27/18 07/03/20 History Omeprazole [Omeprazole 20mg 40 mg PO DAILY 09/27/18 07/03/20 History Capsule] Rivaroxaban [Xarelto 20mg Tablet*] 15 mg PO DAILY 09/27/18 07/03/20 History Citalopram Hydrobromide 20 mg PO DAILY 07/02/20 07/03/20 History [Citalopram 20mg Tablet] Melatonin 5 mg PO HS 07/02/20 07/03/20 History Metoprolol Tartrate [Lopressor 12.5 mg PO DAILY 07/02/20 07/03/20 History 25mg tablet] Potassium Chloride [Micro-K 10mEq 10 meq PO DAILY 07/02/20 07/03/20 History cap] Acetaminophen 325 mg PO BID 07/03/20 07/03/20 History Aspirin 81 mg PO DAILY 07/03/20 07/03/20 History Azelastine HCl [Azelastine Nasal 1 spray NOSTRIL-B BID 07/03/20 07/03/20 History [place] 30mL Bottle] Brimonidine Tartrate 1 drp OU TID 07/03/20 07/03/20 History Folic Acid/Vit B Complex and C 1 tab PO DAILY 07/03/20 07/03/20 History [Super B Complex Tablet] Glycopyrrolate 1 mg PO BID 07/03/20 07/03/20 History Levocetirizine Dihydrochloride 5 mg PO DAILY 07/03/20 07/03/20 History Nystatin/Triamcin [Nystatin-Triamc 1 applicatio TOPICAL TID 07/03/20 07/03/20 History Crm 15gm] Oxazepam [Serax 10mg Capsule] 10 mg PO DAILY 07/03/20 07/03/20 History Height: 1.85 m Weight: 67.784 kg Laboratory Results:: Laboratory Results - last 24 hr 07/02/20 09:20: Urine Color Brown, Urine Appearance Cloudy, Urine pH 6.5, Ur Specific [place] 1.010, Urine Protein 3+, Urine Glucose (UA) Negative, Urine Ketones Trace, Urine Blood 3+, Urine Nitrate Positive, Urine Bilirubin 1+ A, Urine Urobilinogen 1.0, Ur Leukocyte Esterase 3+ A, Urine RBC Tntc, Urine WBC 5-10, Ur Squamous Epith Cells None, Urine Bacteria 2+ 07/02/20 13:51: WBC 13.3 H, RBC 3.53 L, Hgb 12.5 L, Hct 37.6 L, MCV 106.5 H, MCH 35.3 H, MCHC 33.2, RDW 13.8, Plt Count 221, MPV 8.2, Neut % (Auto) 83.9 H, Lymph % (Auto) 9.0 L, [place] % (Auto) 5.6, Eos % (Auto) 1.3, Baso % (Auto) 0.2, Neut # (Auto) 11.2 H, Lymph # (Auto) 1.2, [place] # (Auto) 0.7, Eos # (Auto) 0.2, Baso # (Auto) 0.0 07/02/20 13:51: Sodium 122 L, Potassium 5.1, Chloride 94 L, Carbon Dioxide 26, Anion Gap 7.1, BUN 16, Creatinine 0.50 L, Estimated Creat Clear 58, Estimated GFR 160, Est GFR ( Amer) 193, Glucose 95, Calcium 7.8 L, Total Bilirubin 0.9, AST 58, ALT 22, Alkaline Phosphatase 181 H, Troponin I < 0.01, NT-Pro-B Natriuret Pep 1510 H, Total Protein 5.2 L, Albumin 2.3 L, Globulin 2.9, Albumin/Globulin Ratio 0.8 L, Lipase 21 L, TSH 2.22 07/02/20 13:51: Lactate 1.4 07/02/20 13:51: Chlamy pneumoniae PCR Not detected, Adenovirus (PCR) Not detected, B. pertussis DNA (PCR) Not detected, Coronavirus OC43 (PCR) Not detected, Coronavirus HKU1 (PCR) Not detected, Coronavirus 229E (PCR) Not detected, SARS-CoV-2 (PCR) Not detected, Coronavirus NL63 (PCR) Not detected, Human Metapneumovir PCR Not detected, Influenza A (H1) PCR Not detected, Influ A (H1N1/09) PCR Not detected, Influen
[2020-07-03 10:31] LABS: ABG Base Excess -5.2 mmol/L (-2.4-2.3); ABG HCO3 20.8 mmhg (22.0-26.0); ABG Oxygen Saturation 93 % (90-100); ABG PCO2 40.9 mmhg (35.0-45.0); ABG PH 7.32 mmol/L (7.35-7.45); ABG PO2 67.3 mmhg (80-100)
[2020-07-03 10:32] LABS: Allen's Test Acceptable; Oxygen 5L %; Source Right Radial
[2020-07-03 12:46] LABS: Reflex Lactic Add Lactic Reflex
[2020-07-03 13:22] LABS: Lactic Acid Follow Up (RFLX 1) 1.9 mmol/L (0.7-2.1)
--- NOTE | 2020-07-03 13:34 | HMH.PULMCON ---
*Admission Date: 07/02/20 *Reason for consult:: Hypoxic respiratory failure, shock *History of present illness: 80-year-old male never smoker no prior respiratory complaints previous history of stroke with left-sided paralysis, swallow issues, history of DVT presented to the hospital with abnormal lung auscultation, hypoxia and hypotension and pulmonary was called for further management. [facility] History Medical History: Reports:: Cancer (prostate), Cerebrovascular Accident, Deep Vein Thrombosis, Hyperlipidemia, Hypertension Denies:: Diabetes Mellitus Type 1, Diabetes Mellitus Type 2 *Have you ever received a pneumonia vaccine?: Yes *Have you received a flu vaccine this season?: Yes Other Medical History: Reports: Other (allergic rhinitis, neuropathy, Covid in Apr 2020) Other Surgeries: Yes: Hernia Repair, Skin Cancer Excision, Other (Prostate removed, back sx) - *Social History Last grade of school completed: High school graduate Smoking Status: Never smoker Alcohol Intake: never *Occupational Status:: retired Housing: assisted living facility Household Members: spouse *Travel in the last 8 weeks: None Family Hx:: Stroke ROS - Review of Systems Review of systems:: unable to obtain Meds Home Medications Medication Instructions Recorded Confirmed Type Atorvastatin Calcium [Lipitor 20mg 20 mg PO HS 09/27/18 07/03/20 History Tab] Bifidobacterium Infantis [Align] 4 mg PO DAILY 09/27/18 07/03/20 History Dantrolene Sodium [Dantrium] 50 mg PO BID 09/27/18 07/03/20 History Dextran 70/Hypromellose 1 drop OU HS 09/27/18 07/03/20 History [Artificial Tears] Diclofenac Sodium [Voltaren 100gm 1 applicatio TOPICAL QID PRN 09/27/18 07/03/20 History Topical Gel] Ergocalciferol (Vitamin D2) 50,000 unit PO WEEKLY 09/27/18 07/03/20 History [Vitamin D2] Gabapentin 300 mg PO TID 09/27/18 07/03/20 History Mirtazapine [Remeron 15mg tablet] 15 mg PO HS 09/27/18 07/03/20 History Omeprazole [Omeprazole 20mg 40 mg PO DAILY 09/27/18 07/03/20 History Capsule] Rivaroxaban [Xarelto 20mg Tablet*] 15 mg PO DAILY 09/27/18 07/03/20 History Citalopram Hydrobromide 20 mg PO DAILY 07/02/20 07/03/20 History [Citalopram 20mg Tablet] Melatonin 5 mg PO HS 07/02/20 07/03/20 History Metoprolol Tartrate [Lopressor 12.5 mg PO DAILY 07/02/20 07/03/20 History 25mg tablet] Potassium Chloride [Micro-K 10mEq 10 meq PO DAILY 07/02/20 07/03/20 History cap] Acetaminophen 325 mg PO BID 07/03/20 07/03/20 History Aspirin 81 mg PO DAILY 07/03/20 07/03/20 History Azelastine HCl [Azelastine Nasal 1 spray NOSTRIL-B BID 07/03/20 07/03/20 History [place] 30mL Bottle] Brimonidine Tartrate 1 drp OU TID 07/03/20 07/03/20 History Folic Acid/Vit B Complex and C 1 tab PO DAILY 07/03/20 07/03/20 History [Super B Complex Tablet] Glycopyrrolate 1 mg PO BID 07/03/20 07/03/20 History Levocetirizine Dihydrochloride 5 mg PO DAILY 07/03/20 07/03/20 History Nystatin/Triamcin [Nystatin-Triamc 1 applicatio TOPICAL TID 07/03/20 07/03/20 History Crm 15gm] Oxazepam [Serax 10mg Capsule] 10 mg PO DAILY 07/03/20 07/03/20 History Allergies Allergy/AdvReac Type Severity Reaction Status Date / Time prochlorperazine Allergy Mild DISORIENTED Verified 09/27/18 16:45 [From COMPAZINE] promethazine [From PHENERGAN] Allergy Mild DISORIENTED Verified 09/27/18 16:45 Exam - Constitutional Constitutional:: Present: comfortable. Absent: no acute distress - HENMT Exam HENMT: Present: normocephalic, atraumatic - Eye Exam Eyes:: Present: eyelids normal - Neck Exam Neck:: Present: normal visual inspection - Respiratory Exam Respiratory:: Present: respiratory distress, crackles. Absent: wheezing - Cardiovascular Exam Cardiac:: Present: S1, S2 - GI Exam GI:: Present: soft - Skin Exam Skin: Present: warm, no rash - Neurological Exam Neurological: Present: alert, awake - Extremities Exam Extremities: Present: no cyanosis, no clubbi
--- NOTE | 2020-07-03 20:12 | PC.NURSE ---
Pt Levophed drip was started at 1300 at 2mcg r/t bp of 72/50 1546 4mcg 81/51 1416 6mcg 75/61 1556 drip increased to 8mcg by Elisa nixon 1612 drip increased to 10mcg
--- NOTE | 2020-07-03 21:17 | PC.NURSE ---
trash pulled and pt refused snack at this time
[2020-07-04] VITALS (16 sets, daily range): BP systolic 64–135; BP diastolic 38–61; PULSE 88–160; RESP 20–28; TEMP 36.9–37.7; O2SAT 47–95; BMI 19.8
--- NOTE | 2020-07-04 04:46 | PC.NURSE ---
[id number] dr. barrientos paged [phone] barrientos, notified of increase in heart rate, levophed doseage, increase in o2 demand. new order received.
--- NOTE | 2020-07-04 04:52 | ECG_ITS ---
APPROVED REPORT Exam: Resting ECG HR:158 bpm ECG Measurements Heart Rate 158 AXES UT 96 P 0 QRSd 84 QRS -16 QT 318 T 61 QTc 515 Conclusion Sinus tachycardia with short UT Low voltage QRS Inferior infarct, old changes Old anteroseptal changes Abnormal ECG Electronically signed by : True Ledezma, 07/05/2020 08:48:37
--- NOTE | 2020-07-04 04:52 | PC.NURSE ---
[phone] dr. rutherford paged regarding heart rate order received to get stat ekg and text to him.
--- NOTE | 2020-07-04 05:48 | PC.NURSE ---
[address] rutherford. discussed heart rate, levophed drip, decrease in sats. new orders received. 0515 telemetry strip ran as digoxin 0.25 mg push started 05 telemetry strip ran after digonxin push completed. patient is currently on nonrebreather with sats anywhere from 85-92%
--- NOTE | 2020-07-04 06:16 | PC.NURSE ---
0545 sylwia started at 100 mcq and levophed discontinued, 0600 sylwia drip decreased to 50 mcq
--- NOTE | 2020-07-04 07:09 | PC.NURSE ---
0645 sylwia drip increased back to 100 mcq.
--- NOTE | 2020-07-04 08:23 | HMH.PNCARD ---
Subjective Date: 07/04/20 Time: 08:23 Principal diagnosis: UTI sepsis Interval history: 80 yo WM in bed with complaint of belly pain. Speech is mumbled and mostly unintelligible. Heart rate overnight increased to 150's bpm with EKG showing possible A. flutter with 2:[address] Woods was notified and initiated amiodarone gtt and stopped levophed. Dae-synephrine gtt started for BP support with MAP goal of >65. Heart rate in the 140's now. After discussing with Dr. Woods, will add dilitiazem gtt. If no improvement in rate, then consider cardioversion today. Exam Vital signs and Labs for Last 24 Hours: Temp Pulse Resp BP Pulse Ox 99.8 F H 148 H 20 135/61 85 L 07/04/20 06:00 07/04/20 06:00 07/04/20 06:00 07/04/20 06:00 07/04/20 07:39 Laboratory Results - last 24 hr 07/02/20 09:20: Urine Color Brown, Urine Appearance Cloudy, Urine pH 6.5, Ur Specific [place] 1.010, Urine Protein 3+, Urine Glucose (UA) Negative, Urine Ketones Trace, Urine Blood 3+, Urine Nitrate Positive, Urine Bilirubin 1+ A, Urine Urobilinogen 1.0, Ur Leukocyte Esterase 3+ A, Urine RBC Tntc, Urine WBC 5-10, Ur Squamous Epith Cells None, Urine Bacteria 2+ 07/03/20 08:16: WBC 19.3 H D, RBC 3.34 L, Hgb 11.6 L, Hct 36.4 L, MCV 109.2 H, MCH 34.7 H, MCHC 31.8, RDW 14.0, Plt Count 215, MPV 8.4, Neut % (Auto) 89.5 H, Lymph % (Auto) 5.1 L, [place] % (Auto) 4.1, Eos % (Auto) 1.0, Baso % (Auto) 0.3, Neut # (Auto) 17.3 H, Lymph # (Auto) 1.0, [place] # (Auto) 0.8, Eos # (Auto) 0.2, Baso # (Auto) 0.1, Total Counted 100, Neutrophils % (Manual) 91 H, Band Neutrophils % 1.0, Lymphocytes % (Manual) 2 L, Monocytes % (Manual) 4, Metamyelocytes % 2.0 H, Platelet Estimate Normal, Macrocytosis 2+ 07/03/20 08:16: Sodium 124 L, Potassium 5.1, Chloride 97 L, Carbon Dioxide 20 L D, Anion Gap 12.1, BUN 19, Creatinine 0.60 L, Estimated Creat Clear 56, Estimated GFR 129, Est GFR ( Amer) 156, Glucose 88, Calcium 7.5 L, Total Bilirubin 0.7, AST 35 D, ALT 19, Alkaline Phosphatase 140 H, Total Protein 4.6 L, Albumin 2.0 L D, Globulin 2.6, Albumin/Globulin Ratio 0.8 L 07/03/20 08:45: Lactate 2.4 H 07/03/20 08:52: Specimen Source Right radial, O2 % 5l, ABG pH 7.32 L, ABG pCO2 40.9, ABG pO2 67.3 L, ABG HCO3 20.8 L, ABG Total CO2 22.0 L, ABG O2 Saturation 93, ABG Base Excess -5.2 L, Praveen Test Acceptable 07/03/20 13:07: Lactate 1.9 I & O for Last 24 hours: Intake & Output 07/01/20 07/02/20 07/03/20 07/04/20 11:59 11:59 11:59 11:59 Intake Total 120 / 120 2223.406 / 2223.406 Output Total 0 / 0 400 / 400 Balance 120 / 120 1823.406 / 1823.406 Weight 149 lb 7 oz 149 lb 7 oz Microbiology Reports for the Last 24 Hours: Microbiology 07/03/20 09:20 Sputum - Expectorated Sputum Gram Stain - Final - *Routine Respiratory Exam Present: rhonchi, crackles, diminished air movement - *Routine Cardiovascular Exam Present: tachycardia - *Routine Extremities Exam Present: edema. Absent: cyanosis, clubbing Progress Note: A&P (1) SOB (shortness of breath) Status: Acute (2) Cough Status: Acute (3) Edema Status: Acute (4) Acute respiratory failure with hypoxia Status: Acute (5) Congestive heart failure Status: Acute (6) Hyponatremia Status: Acute (7) Severe sepsis Status: Acute (8) Hyperlipidemia Status: Chronic (9) Hypertension Status: Chronic (10) Thoracic aortic aneurysm (TAA) Status: Chronic (11) Atrial flutter with rapid ventricular response Status: Acute Assessment and Plan for All Diagnoses:: 1. Tachycardia/A. flutter with RVR- continue Amiodarone and start dilitiazem gtt. continue IV digoxin 0.25 mg daily. Consider cardioversion later today. On DVT prophylaxis Lovenox dosing. Oral metoprolol on hold. 2. Hypotension, on Dae 3. UTI/Sepsis, on Abx per Pulm and PCP 4. Hypoproteinemia with third spacing/edema 5. Hyponatremia with concern for adrenal insufficiency. Continue solu-cortef 100 mg
--- NOTE | 2020-07-04 08:47 | HMH.ACPN2 ---
<Alejandra Baltazar - Last Filed: 07/04/20 08:47> Internal Medicine - PN: Subj *Date: 07/04/20 *Time: 08:47 Interval history: The patient was moved to stepdown overnight. His EKG showed atrial flutter. He was started on a Levophed drip yesterday and this was changed to a Dae-Synephrine drip for blood pressure support. He was also started on an amiodarone drip. Cardiology has seen him today and we will add a diltiazem drip to improve his rate. His did make him a DNR yesterday and his whole family has visited. She states he has been talking most of the night but most of it is unintelligible. He has been placed on a nonrebreather. Exam Vital signs and Labs for Last 24 Hours: Temp Pulse Resp BP Pulse Ox 99.8 F H 148 H 20 135/61 85 L 07/04/20 06:00 07/04/20 06:00 07/04/20 06:00 07/04/20 06:00 07/04/20 07:39 Laboratory Results - last 24 hr 07/02/20 09:20: Urine Color Brown, Urine Appearance Cloudy, Urine pH 6.5, Ur Specific [place] 1.010, Urine Protein 3+, Urine Glucose (UA) Negative, Urine Ketones Trace, Urine Blood 3+, Urine Nitrate Positive, Urine Bilirubin 1+ A, Urine Urobilinogen 1.0, Ur Leukocyte Esterase 3+ A, Urine RBC Tntc, Urine WBC 5-10, Ur Squamous Epith Cells None, Urine Bacteria 2+ 07/03/20 08:16: Total Counted 100, Neutrophils % (Manual) 91 H, Band Neutrophils % 1.0, Lymphocytes % (Manual) 2 L, Monocytes % (Manual) 4, Metamyelocytes % 2.0 H, Platelet Estimate Normal, Macrocytosis 2+ 07/03/20 08:16: Sodium 124 L, Potassium 5.1, Chloride 97 L, Carbon Dioxide 20 L D, Anion Gap 12.1, BUN 19, Creatinine 0.60 L, Estimated Creat Clear 56, Estimated GFR 129, Est GFR ( Amer) 156, Glucose 88, Calcium 7.5 L, Total Bilirubin 0.7, AST 35 D, ALT 19, Alkaline Phosphatase 140 H, Total Protein 4.6 L, Albumin 2.0 L D, Globulin 2.6, Albumin/Globulin Ratio 0.8 L 07/03/20 08:45: Lactate 2.4 H 07/03/20 08:52: Specimen Source Right radial, O2 % 5l, ABG pH 7.32 L, ABG pCO2 40.9, ABG pO2 67.3 L, ABG HCO3 20.8 L, ABG Total CO2 22.0 L, ABG O2 Saturation 93, ABG Base Excess -5.2 L, Praveen Test Acceptable 07/03/20 13:07: Lactate 1.9 I & O for Last 24 hours: Intake & Output 07/01/20 07/02/20 07/03/20 07/04/20 11:59 11:59 11:59 11:59 Intake Total 120 / 120 2223.406 / 2223.406 Output Total 0 / 0 400 / 400 Balance 120 / 120 1823.406 / 1823.406 Weight 149 lb 7 oz 149 lb 7 oz Microbiology Reports for the Last 24 Hours: Microbiology 07/03/20 09:20 Sputum - Expectorated Sputum Gram Stain - Final - Constitutional chronically ill appearing - *Routine Respiratory Exam Present: rhonchi (bilaterally) - *Routine Cardiovascular Exam Present: tachycardia - *Routine Abdominal Exam Present: soft, normoactive bowel sounds, tenderness (diffuse) - *Routine Extremities Exam Present: edema (bilateral hands and feet). Absent: cyanosis, clubbing - *Routine Skin Exam Present: pallor. Absent: rash - *Routine Neurological Exam Present: altered mental status Assessment and Plan (1) Severe sepsis Status: Acute Category: Medical Code(s): A41.9 - Sepsis, unspecified organism; R65.20 - Severe sepsis without septic shock (2) Acute respiratory failure with hypoxia Status: Acute Category: Medical Code(s): J96.01 - Acute respiratory failure with hypoxia (4) SOB (shortness of breath) Status: Acute Category: Medical Code(s): R06.02 - Shortness of breath (5) Cough Status: Acute Category: Medical Code(s): R05 - Cough (6) Congestive heart failure Status: Acute Qualifiers: Heart failure type: systolic Heart failure chronicity: chronic Qualified Code(s): I50.22 - Chronic systolic (congestive) heart failure Category: Medical Code(s): I50.9 - Heart failure, unspecified (7) Hyponatremia Status: Acute Category: Medical Code(s): E87.1 - Hypo-osmolality and hyponatremia (8) Hypertension Status: Chronic Category: Medical Code(s): I10 - Essential (primary) hy
[2020-07-04 09:49] LABS: Basophils % 0.2 % (0.1-2.0); Eosinophils # 0.1 K/mm3 (0.0-0.4); Eosinophils % 0.8 % (0.1-12.0); Hematocrit 35.5 % (42.0-52.0); Hemoglobin 11.6 g/dL (14.1-18.0); Lymphocytes # 0.6 K/mm3 (0.7-4.5); Lymphocytes % 4.6 % (10-50); Mean Corpuscular HGB Conc 32.8 g/dL (31.8-35.4); Mean Corpuscular Hemoglobin 34.6 pg (27.0-31.2); Mean Corpuscular Volume 105.4 fl (80-94); Monocytes # 0.5 K/mm3 (0.1-1.0); Monocytes % 3.7 % (1.7-9.3); Neutrophils # 11.2 K/mm3 (1.8-7.8); Neutrophils % 90.8 % (37.0-80.0); Platelet Count 229 K/mm3 (142-424); Red Blood Count 3.36 M/mm3 (4.60-6.20); Red Cell Distribution Width 13.8 % (11.5-17.5); White Blood Count 12.3 K/mm3 (4.8-10.8)
[2020-07-04 10:00] LABS: Chloride 103 mmol/L (98-107)
[2020-07-04 10:01] LABS: Potassium 4.2 mmoL/L (3.5-5.1); Sodium 125 mmol/L (136-145)
[2020-07-04 10:03] LABS: Alanine Aminotransferase 16 U/L (12-78); Aspartate Amino Transferase 38 U/L (17-59); Bilirubin,Total 0.7 mg/dl (0.2-1.3); Blood Urea Nitrogen 20 mg/dl (9-20); Creatinine Clearance Estimated 56 mL/min (50-200); Estimated Glomerular Filt Rate 108 ml/min (>60); GFR (African American) 131 ML/MIN (>60)
[2020-07-04 10:04] LABS: Albumin Level 1.6 g/dl (3.5-5.0); Albumin/Globulin Ratio 0.7 (1.1-1.8); Alkaline Phosphatase 107 U/L (38-126); Anion Gap 8.2 mEq/L (5-15); Carbon Dioxide 18 mmol/L (22.0-30.0); Globulin 2.3 g/dL (1.3-3.2); Glucose 92 mg/dl (74-100); MANUAL DIFFERENTIAL MANUAL DIFFERENTIAL (MANUAL DIFF); Total Protein,Serum 3.9 g/dl (6.3-8.2)
[2020-07-04 10:07] LABS: Calcium 6.9 mg/dl (8.4-10.2)
[2020-07-04 10:16] LABS: Anisocytosis 1+; Lymphocytes % 7 % (10-50); Macrocytosis 1+; Monocytes % 4 % (2-9); Neutrophils % 87 % (42-76); Platelet Estimate Normal; Total Cells Counted 100
--- NOTE | 2020-07-04 10:29 | PC.NURSE ---
Per request, Sachin Zurita (electrical software engineer) called to bedside @ 1026. Courtesy cart arranged for bedside from dietary @ 102.
--- NOTE | 2020-07-04 11:00 | PC.NURSE ---
1100 - Dr. Kimball @ bedside speaking w/ pt's family. MD aware of pt's VS.
--- NOTE | 2020-07-04 12:26 | HMH.ACPN2 ---
Internal Medicine - PN: Osman *Date: 07/04/20 *Time: 12:26 Interval history: The patient declined overnight and was placed in stepdown. He has vasopressors running with very poor results. I discussed his situation with his family who was present. They understand the gravity of his situation. Exam Vital signs and Labs for Last 24 Hours: Temp Pulse Resp BP Pulse Ox 98.5 F 125 H 20 135/61 85 L 07/04/20 11:39 07/04/20 09:09 07/04/20 06:00 07/04/20 06:00 07/04/20 07:39 Laboratory Results - last 24 hr 07/03/20 13:07: Lactate 1.9 07/04/20 09:41: WBC 12.3 H D, RBC 3.36 L, Hgb 11.6 L, Hct 35.5 L, MCV 105.4 H, MCH 34.6 H, MCHC 32.8, RDW 13.8, Plt Count 229, MPV 8.0, Neut % (Auto) 90.8 H, Lymph % (Auto) 4.6 L, [place] % (Auto) 3.7, Eos % (Auto) 0.8, Baso % (Auto) 0.2, Neut # (Auto) 11.2 H, Lymph # (Auto) 0.6 L, [place] # (Auto) 0.5, Eos # (Auto) 0.1, Baso # (Auto) 0.0, Total Counted 100, Neutrophils % (Manual) 87 H, Band Neutrophils % 1.0, Lymphocytes % (Manual) 7 L, Monocytes % (Manual) 4, Metamyelocytes % 1.0, Platelet Estimate Normal, Anisocytosis 1+, Macrocytosis 1+ 07/04/20 09:41: Sodium 125 L, Potassium 4.2, Chloride 103, Carbon Dioxide 18 L, Anion Gap 8.2, BUN 20, Creatinine 0.70, Estimated Creat Clear 56, Estimated GFR 108, Est GFR ( Amer) 131, Glucose 92, Calcium 6.9 L, Total Bilirubin 0.7, AST 38, ALT 16, Alkaline Phosphatase 107, Total Protein 3.9 L, Albumin 1.6 L D, Globulin 2.3, Albumin/Globulin Ratio 0.7 L I & O for Last 24 hours: Intake & Output 07/02/20 07/03/20 07/04/20 05/01/21 11:59 11:59 11:59 11:59 Intake Total 120 / 120 2223.406 / 2223.406 Output Total 0 / 0 400 / 400 Balance 120 / 120 1823.406 / 1823.406 Weight 149 lb 7 oz 149 lb 7 oz Microbiology Reports for the Last 24 Hours: Microbiology 07/02/20 09:20 Urine,Catheterized Urine Culture - Preliminary 07/02/20 09:20 Urine,Catheterized Urine Culture - Preliminary NO GROWTH AFTER 24 HOURS 07/03/20 09:20 Sputum - Expectorated Sputum Gram Stain - Final - Constitutional no acute distress (He is resting comfortably.) - *Routine HEENT Exam Head: Present: normocephalic Eye: Present: other (His eyes are sunken.) - *Routine Neck Exam Absent: JVD - *Routine Respiratory Exam Absent: respiratory distress - *Routine Cardiovascular Exam Present: other (Monitor is currently off.) - *Routine Abdominal Exam Present: soft. Absent: tenderness - *Routine Extremities Exam Present: edema (Edema due to anasarca.) Assessment and Plan (1) Severe sepsis Status: Acute Category: Medical Code(s): A41.9 - Sepsis, unspecified organism; R65.20 - Severe sepsis without septic shock (2) Acute respiratory failure with hypoxia Status: Acute Category: Medical Code(s): J96.01 - Acute respiratory failure with hypoxia (3) Pleural effusion Status: Acute Category: Medical Code(s): J90 - Pleural effusion, not elsewhere classified (4) SOB (shortness of breath) Status: Acute Category: Medical Code(s): R06.02 - Shortness of breath (5) Cough Status: Acute Category: Medical Code(s): R05 - Cough (6) Congestive heart failure Status: Acute Qualifiers: Heart failure type: systolic Heart failure chronicity: chronic Qualified Code(s): I50.22 - Chronic systolic (congestive) heart failure Category: Medical Code(s): I50.9 - Heart failure, unspecified (7) Hyponatremia Status: Acute Category: Medical Code(s): E87.1 - Hypo-osmolality and hyponatremia (8) Hypertension Status: Chronic Category: Medical Code(s): I10 - Essential (primary) hypertension (9) Hyperlipidemia Status: Chronic Category: Medical Code(s): E78.5 - Hyperlipidemia, unspecified (10) Thoracic aortic aneurysm (TAA) Status: Chronic Qualifiers: Presence of rupture: without rupture Qualified Code(s): I71.2 - Thoracic aortic aneurysm, without rupture Category: Medical
--- NOTE | 2020-07-04 12:28 | PC.NURSE ---
Dr. Monroe @ bedside @ 1210 speaking w/ family. MD aware of pt's current VS and rates of gtt. MD states awareness. No new orders @ this time. Pt resting comfortably, non-rebreather remains in place. Family @ bedside, along w/ see supervisor. No needs voiced.
--- NOTE | 2020-07-04 12:44 | PC.NURSE ---
Dr. Kimball @ bedside, MD aware of VS.
--- NOTE | 2020-07-04 12:53 | PC.NURSE ---
Estefany Baltazar @ pt's bedside speaking w/ family.
--- NOTE | 2020-07-04 13:51 | PC.NURSE ---
notified Alejandra Baltazar of calcium of 6.9 at 1144 no new orders
--- NOTE | 2020-07-04 14:12 | PC.NURSE ---
1345 - HR in 90's, Cardizem decreased to 5 mls/hr. Spoke w/ Connor Calderon, Hr currently in 70-80's. Gave okay for cardizem gtt to be turned off.
--- NOTE | 2020-07-04 14:45 | PC.NURSE ---
Addendum entered by Giovana Weinstein RN 07/04/20 15:01: 1450 - BRIAN called @ this time, pt ruled out for organ donation. Spoke w/ Kadi Harleyjeannie, Case #[id number] Original Note: 1430 - Asystole noted on tely, nurse at bedside. No audible heart or lungs sounds able to be auscultated. Family @ bedside. 1440 - Zee notified of pt's passing. States he will notify Dr. Monroe and allow him to pronounce if he is able, if not he will come to floor and pronounce pt.
--- NOTE | 2020-07-04 14:57 | [facility]H.PULMPN ---
Internal Medicine - PN: Subj *Date: 07/04/20 *Time: 14:57 Interval history: Patient clinical status continued to worsen. Exam - Constitutional Constitutional:: Present: comfortable - HENMT Exam HENMT: Present: normocephalic, atraumatic - Neck Exam Neck:: Present: normal visual inspection - Respiratory Exam Respiratory:: Present: respiratory distress, crackles. Absent: able to speak in complete sentences - Cardiovascular Exam Cardiac:: Present: S1, S2 - GI Exam GI:: Present: soft - Skin Exam Skin: Present: no rash - Neurological Exam Neurological: Absent: alert, awake, normal cognition - Extremities Exam Extremities: Present: no cyanosis, no clubbing, edema Assessment and Plan (1) Severe sepsis Status: Acute Category: Medical Code(s): A41.9 - Sepsis, unspecified organism; R65.20 - Severe sepsis without septic shock (2) Acute respiratory failure with hypoxia Status: Acute Category: Medical Code(s): J96.01 - Acute respiratory failure with hypoxia (3) Pleural effusion Status: Acute Category: Medical Code(s): J90 - Pleural effusion, not elsewhere classified (4) SOB (shortness of breath) Status: Acute Category: Medical Code(s): R06.02 - Shortness of breath (5) Cough Status: Acute Category: Medical Code(s): R05 - Cough (6) Congestive heart failure Status: Acute Qualifiers: Heart failure type: systolic Heart failure chronicity: chronic Qualified Code(s): I50.22 - Chronic systolic (congestive) heart failure Category: Medical Code(s): I50.9 - Heart failure, unspecified (7) Hyponatremia Status: Acute Category: Medical Code(s): E87.1 - Hypo-osmolality and hyponatremia (8) Hypertension Status: Chronic Category: Medical Code(s): I10 - Essential (primary) hypertension (9) Hyperlipidemia Status: Chronic Category: Medical Code(s): E78.5 - Hyperlipidemia, unspecified (10) Thoracic aortic aneurysm (TAA) Status: Chronic Qualifiers: Presence of rupture: without rupture Qualified Code(s): I71.2 - Thoracic aortic aneurysm, without rupture Category: Medical Code(s): I71.2 - Thoracic aortic aneurysm, without rupture (11) Atrial flutter with rapid ventricular response Status: Acute Category: Medical Code(s): I48.92 - Unspecified atrial flutter (12) Anasarca Status: Acute Category: Medical Code(s): R60.1 - Generalized edema - Assessment and plan all Dx Assessment and Plan for all problems:: #Hypoxic respiratory failure: # Shock: 80-year-old never smoker no prior respiratory complaints never used inhalers before prior history of stroke, prior history of DVTs presented to hospital with worsening respiratory status abnormal auscultation hypotension and hypoxia. CTA performed admission did not show any evidence of pulmonary parenchymal airspace disease showed bilateral lower lobe atelectasis with effusions right greater than left. No evidence of pulmonary embolism. No evidence of aortic dissection on the CTA, however showed aneurysmal dilatation of his aorta Patient was initiated on sepsis protocol with antibiotics including Vanco and Zosyn with continuation of doxycycline given 2 L of fluid bolus. Patient was also initiated on pressors Cardizem for his shock and atrial fibrillation. Patient clinical status continued to worsen during his hospital course with escalation of pressor requirements. CODE STATUS was changed to DNR as per family wishes as today discussed the clinical condition of the family along with possible options and patient's family opted for comfort care with no escalation of care with complete understanding the possible outcomes including . We will continue to monitor and provide care respecting family's wishes. #Thank you for involving pulmonary in this patient care. We will continue to follow. Please call with any further questions or concerns
--- NOTE | 2020-07-04 16:18 | PC.NURSE ---
Family remain @ bedside. No needs voiced.
--- NOTE | 2020-07-05 08:58 | HMH.DEATH ---
Pronouncement Note - Date and Time of Date of : 07/04/20 Time of : 14:30 - Additional Data Confirmation of : no pulse, no respirations, no heart sounds Family: at bedside Attending physician: Beatrice Monroe MD
--- NOTE | 2020-07-11 17:48 | HMH.DCSUM ---
General - General Admission date:: 07/02/20 Discharge date: 07/04/20 HPI HPI: Mr. Gann is an 80-year-old male with a history of hypertension, stroke with left-sided paralysis, history of DVTs, history of Covid in April, and anemia. The patient is a [place] of [facility] [place] was contacted yesterday by his nurse due to low oxygen saturations and the fact that he sounded like he was gurgling. She advised him to go to the emergency room. His states he had some leg swelling yesterday, which he does not normally have and she says he seemed to be short of breath. He was evaluated in the emergency room and was initially felt to have a pneumonia. His white blood cell count was elevated, his blood gas was relatively unremarkable, and his BNP was elevated at 1510. His chest x-ray showed a right lower lobe atelectasis versus infiltrate and a small effusion. There was also increased prominence of the aortic knob suspicious for aortic aneurysm therefore a CTA was ordered. The CTA did not show a pneumonia, but rather a small to medium sized right effusion with atelectasis in the right lower lobe and a trace left effusion. It also showed some aneurysmal dilatation of the ascending aorta as well as the proximal descending thoracic aorta. The patient was admitted and started on IV antibiotics as well as IV fluids. This a.m. his nurse contacted me due to low blood pressure of 70/40 and a heart rate in the 140s. She states he is likely to trigger for sepsis with his elevated white blood cell count which would require large amounts of IV fluids. His IV fluids have already been turned up to 200 mL/h due to his low blood pressure. His oxygen saturations have been in the 70s and 80s and his oxygen has been turned up to 4 L/min with sats in the low 90s. Hospital Course Hospital Course: The patient was started on IV fluids as per sepsis protocol and repeat ABGs were ordered. Cardiology and pulmonology were both consulted and cardiology ordered a stat echo. The echo was very limited and a poor study and showed a possibly preserved left ventricular systolic function. His CTA showed pleural effusions but did not indicate a pneumonia. His white blood cell count was elevated. His edema was likely due to anasarca and chronic and he actually seemed dehydrated, therefore IV fluids were continued. He was also started on IV antibiotics. He was started on a Levophed drip secondary to hypotension by cardiology. They also felt he may be having adrenal crisis and he was given 100 mg of Solu-Cortef. He was seen in consultation by pulmonology who felt he should be continued on vancomycin and doxycycline pending blood and urine cultures and he should be changed from cefepime to Zosyn based on his previous urine cultures. He wanted to continue nasal cannula and maintain an oxygen saturation of 88 to 92%. He also wanted the patient placed on strict aspiration protocol. The patient's heart rate increased and his EKG showed possible atrial flutter. An amiodarone drip was initiated and his Levophed was stopped. He was also started on a Dae-Synephrine drip for blood pressure support. A diltiazem drip was also started. The patient was moved into the stepdown unit. His oxygen began decreasing and he was placed on a nonrebreather. His family did discuss his CODE STATUS and made him a DNR. His oxygen continued to drop and was in the 50s. His family all came to visit and he on 07/04/2020 at 1430. Of note, his urine culture grew out Klebsiella pneumoniae and Enterobacter cloacae. His sputum culture grew out Klebsiella pneumoniae. Objective Vital signs: Temp Pulse Resp BP Pulse Ox 98.5 F 88 22 70/38 L 47 L 07/04/20 11:39 07/04/20 14:00 07/04/20 14:00 07/04/20 14:00 07/04/20 14:00 Narrative: - Constitutional cachectic, chronically ill appearing - *Routine HEENT Exam Head: Present: normocephalic E
== END 2020-07-04 19:25 | disposition expired | DRG 871 ==
LOC: ER 17:57 → 2ND 07-03 07:41
PROVIDERS: Physician Assistant; Admitting Provider Family Medicine; Emergency Provider Emergency Medicine; PCP Family Medicine; Visit Provider Family Medicine
DX: A41.9 Sepsis, unspecified organism (principal); J96.01 Acute respiratory failure with hypoxia; I50.22 Chronic systolic (congestive) heart failure; I69.152 Hemiplegia and hemiparesis following nontraumatic intracerebral hemorrhage affecting left dominant side; R57.9 Shock, unspecified; N39.0 Urinary tract infection, site not specified; I48.92 Unspecified atrial flutter; E27.2 Addisonian crisis; R65.20 Severe sepsis without septic shock; I71.2 Thoracic aortic aneurysm, without rupture; E86.0 Dehydration; Z85.46 Personal history of malignant neoplasm of prostate; Z86.718 Personal history of other venous thrombosis and embolism; Z86.16 Personal history of COVID-19; E78.5 Hyperlipidemia, unspecified; E77.8 Other disorders of glycoprotein metabolism; D64.9 Anemia, unspecified; I50.9 Heart failure, unspecified; I11.0 Hypertensive heart disease with heart failure; Z66 Do not resuscitate; G62.9 Polyneuropathy, unspecified; Z88.8 Allergy status to other drugs, medicaments and biological substances; Z79.82 Long term (current) use of aspirin; B96.1 Klebsiella pneumoniae [K. pneumoniae] as the cause of diseases classified elsewhere; B95.2 Enterococcus as the cause of diseases classified elsewhere
CPT/HCPCS: 36415; 71045; 71275; 80053; 81001; 82803; 83605; 83690; 83880; 84443; 84484; 85007; 85025; 85610; 85730; 87040; 87070; 87077; 87086; 87088; 87186; 87205; 87581; 87633; 87798; 93005; 93306; 93308; 94640; 94761; 99284; J0282; J2543; J3370; J7060; Q9967